=== PATIENT | male | born 1945 | race Caucasian/White ===

== ENCOUNTER 2018-05-09 12:04 | Inpatient (IN) ==
--- NOTE | 2018-05-09 13:27 | EKG Report ---
Test Performed on : 05/09/2018 1:16:48 PM Test Reason : chest pain Blood Pressure : / mmHG Vent. Rate : 081 BPM Atrial Rate : 076 BPM P-R Int : 000 ms QRS Dur : 078 ms QT Int : 388 ms P-R-T Axes : 000 037 018 degrees QTc Int : 450 ms Atrial fibrillation. Low voltage QRS Abnormal ECG When compared with ECG of 09-MAY-2018 13:16, (Unconfirmed) No significant change was found Confirmed by Mely TENA, Colin Wise ([id number]) on 05/09/2018 5:29:00 PM
[2018-05-09 13:31] LABS: BASO# 0.02 X1000 (0.0-0.2); BASO% 0.2 % (0.0-0.8); EOS# 0.18 X1000 (0.0-0.7); EOS% 2.1 % (0.0-10.0); HEMATOCRIT 41.5 % (42.0-52.0); HEMOGLOBIN 12.1 g/dL (14.0-18.0); IMM GRAN# 0.02 X1000 (0.0-0.04); IMM GRAN% 0.2 % (0.0-0.5); LYMPH# 0.79 X1000 (1.2-3.4); LYMPH% 9.2 % (20.5-51.1); MCH 25.6 PG (27-31); MCHC 29.2 g/dL (33-37); MCV 87.7 FL (81-99); MONO% 8.1 % (1.7-9.3); MPV 10.3 FL (7.4-10.4); NEUT# 6.88 X1000 (1.4-6.5); NEUT% 80.2 % (42.2-75.2); PLT 185 X1000 (130-400); RBC 4.73 XMIL (4.7-6.1); RDW 19.5 % (11.5-14.5); WBC 8.59 X1000 (4.8-10.8)
--- NOTE | 2018-05-09 13:36 | Diag Imaging Result Doc PS360 ---
EXAM: CHEST-2 VIEWS 05/09/2018 HISTORY: SOB TECHNIQUE: PA and lateral chest COMMENT: There is cardiomegaly. There is interstitial pulmonary edema generally. This was not the case at the time the previous study of 07/12/2014. IMPRESSION: Pulmonary edema. Electronically signed by Reggie Slater 05/09/2018 1:34 PM
[2018-05-09 13:56] LABS: HEMOGLOBIN A1C 5.4 % (4.8-6.0)
[2018-05-09 14:01] LABS: ALB/GLOB RATIO 1.7; ALBUMIN 3.9 g/dL (3.5-5.0); CALCIUM 8.4 mg/dL (8.8-10.2); CREATININE 1.5 mg/dL (0.7-1.2); MAGNESIUM 2.2 mg/dL (1.5-2.7); POTASSIUM 4.3 mmol/L (3.5-5.1); TOTAL BILIRUBIN 0.9 mg/dL (0.20-1.00); TOTAL PROTEIN 6.2 g/dL (6.3-8.3)
[2018-05-09] MEDS: LASIX IV SCH (14:31)
[2018-05-09 20:11] LABS: INR 3.09
[2018-05-09] MEDS: COREG PO SCH (20:22)
[2018-05-09] MEDS ORDERED: COUMADIN PO SCH (23:30)
[2018-05-10] MEDS: LASIX IV SCH ×3 (00:09→17:30)
--- NOTE | 2018-05-10 03:54 | HISTORY AND PHYSICAL ---
CHIEF COMPLAINT: Altered mental status, shortness of breath, hypoxemia, weight gain, swelling of feet with blisters coming, and oozing of the fluid on both legs. HISTORY OF PRESENT ILLNESS: He is a 72-year-old, white gentleman who came into my office with the above problems for the last 1 week. Patient was hypoxic. Chest x-ray, cardiomegaly with increased pulmonary vasculature. There was 4+ pedal edema. He also has fluid in the belly. Basically admitted to the hospital with decompensated diastolic heart failure with underlying chronic atrial fibrillation. 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 PAST SURGICAL HISTORY: Right cataract surgery, right nephrectomy due to oncocytoma. ALLERGIES: Not known. MEDICATIONS: Finasteride 5 mg daily, Coreg 25 p.o. b.i.d., alfuzosin 10 mg daily, allopurinol 200 daily, amlodipine 10 daily, cetirizine 10 daily, folic acid 400 mcg daily, Lasix 40 daily, B12 500 mcg daily, warfarin 5 and 10 mg alternating. ALLERGIES: Avoid blood products due to IgA deficiency. SOCIAL HISTORY: . Two kids. Lives in [place]. Retired from [employer]. No smoking. Noalcohol. FAMILY HISTORY: Father of heart failure at 72. Mom of heart failure at 75. HEALTH MAINTENANCE: Flu vaccine January 2017, tetanus November 2016, last prostate exam December 2017 , colonoscopy refused. REVIEW OF SYSTEMS: HEENT: No headache. No vision problem. Had a large, 1 cm basal cell on the right side, slowly healing status post radiation before. He had several cryoablation procedures done. Neck: There is no neck pain. Cardiopulmonary: Shortness of breath, PND , orthopnea. No chest pain. GI: Abdominal swelling. Genitourinary: He had a left kidney, had another oncocytoma, under the care of Dr. Serrano No history of hesitancy, frequency, dysuria, obstructive symptoms. Musculoskeletal: Swelling of feet and both legs, and blisters noted. Constitutional: Weight gain. Neurologic: No neurological symptoms or weakness. PHYSICAL EXAMINATION: VITAL SIGNS: Temperature is 97 degrees, pulse is 84, 2 L nasal cannula 89%, blood pressure is 117/66. HEENT EXAMINATION: Atraumatic, normocephalic. Pupils equal, react to light. TMs are normal. Nose and throat within midline. A 1 cm basal cell on the right side noted. NECK: Supple. No lymphadenopathy. CHEST: There is bilateral air entry. HEART: Heart sounds are irregular. ABDOMEN: Belly is soft, obese, nontender. Good bowel sounds. RECTAL: Examination deferred. EXTREMITIES: There is 3+ pedal edema in both legs. Blisters on the left leg noted. NEUROLOGIC: No obvious neurological deficits. INVESTIGATIONS: CBC: White cell count 8.5, hematocrit 42, platelets 185,000. PTT 34, INR 3.09. SMA 7: Sodium 147, BUN 31, creatinine 1.5. Troponin was normal. ProBNP is elevated. B12 is normal. Chest x-ray, cardiomegaly with CHF. ASSESSMENT AND PLAN: 1. A 72-year-old, white gentleman admitted to the hospital with acute decompensated diastolic heart failure. We will follow up on echocardiography. Continue on fluid restriction, daily weights, intravenous Lasix. 2. 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 3. Lesion on the left kidney, suspicious solid mass, under the care of urologist. 4. IgA deficiency. Avoid blood products unless washed red blood cell transfusion. 5. Benign prostatic hypertrophy. Continue on Uroxatral and finasteride. 6. Postvoid residual urine 150 mL. 7. Chronic atrial fibrillation, on Coumadin 5 mg daily. Continue to monitor. 8. Chronic atrial fibrillation, on Coreg. 9. Hypertension, on amlodipine. Unable to tolerate MICHELLE inhibitors. 10. Hypoxemia due to congestive heart failure and we will follow up. 11. Basal cell carcinoma on the right sideburn, status post radiation with recurrence, cryoablation since January. 12. Type 2 diabetes, diet controlled. 13. Gout on the right wrist, on allopurinol 200 daily. 14. Large ventral hernia on the right flank, asymptomatic. 15. Left-sided testicular hydrocele, stable. 16. Discussed with the family the plan of care. We will follow up. cc: Seth Hines MD [facility]
[2018-05-10 05:52] LABS: ALLEN TEST YES; BE 3.4 mmoll (-3.0-3.0); BLOOD TYPE ARTERIAL; HCO3-(ACT) 27.2 mmoll (20.0-26.0); METHB 0.5 % (0.0-1.5); O2(CT) 14.6 mL/dL (15.0-23.0); SAMPLE BLOOD; SAO2 84.4 % (95.0-100.0); THB 12.7 g/dL (11.5-17.4); pH(98.6) 7.22 (7.35-7.45)
[2018-05-10 05:53] LABS: PCO2(98.6) 82 mmHg (35-45); PO2(98.6) 48 mmHg (60-100)
[2018-05-10 05:54] LABS: MODALITY VENTIMASK; O2HB 81.8 % (95.0-99.0)
[2018-05-10 07:06] LABS: CREATININE 1.7 mg/dL (0.7-1.2); POTASSIUM 4.1 mmol/L (3.5-5.1)
[2018-05-10 07:27] LABS: INR 3.56; PROTIME 38.1 Seconds (11.0-16.0)
--- NOTE | 2018-05-10 08:05 | ECHO REPORT ---
ORDER DATE: 05/09/2018 MEASUREMENTS: 1. Left ventricular end-diastolic diameter 4.4. 2. End systolic murmur 2.7. 3. Septal thickness 1.0. 4. Posterior wall thickness 1.0. 5. Aortic root 2.8. 6. Left atrium 4.2. SUMMARY: 1. Technically difficult study due to limited acoustic window quality. 2. Gspo-iv-rxckphsg sclerosis of trileaflet aortic valve demonstrated with mild reduction in aortic valve leaflet mobility, but visibly adequate aortic valve opening. Peak gradient across aortic valve is 15 mmHg. Mild mitral annular calcification is demonstrated. Tricuspid valve is without evidence of structural abnormality with mild tricuspid regurgitation. Estimated systolic PA pressure by Doppler is 65 mmHg suggesting moderate pulmonary hypertension. Pulmonic valve is not well demonstrated. The aortic root is normal size. 3. Normal left ventricular dimensions suggested. Estimated left ventricular ejection fraction appears to be at least 65%. No regional wall motion abnormalities evident. Bnnv-ou-vtkccgze biatrial enlargement demonstrated. Right ventricle is normal in size with grossly preserved right ventricular systolic function. 4. No pericardial effusion. 5. Appearance of inferior vena cava suggests normal central venous pressure. 6. Rhythm during study appears to be atrial fibrillation. CONCLUSIONS: 1. Technically difficult study. 2. Aortic valve sclerosis with minimal aortic stenosis. 3. Mild mitral annular calcification. 4. Mild tricuspid regurgitation with estimated systolic pulmonary artery pressure 65 mmHg. 5. Estimated left ventricular ejection fraction at least 65%. 6. Goyy-ve-zhzrfcnc biatrial enlargement. 7. Atrial fibrillation during study. cc: MD Seth Weeks MD
[2018-05-10] MEDS: COREG PO SCH ×2 (08:46→21:34)
[2018-05-10] MEDS: FOLIC ACID PO SCH (08:47)
[2018-05-10] MEDS: VITAMIN B-12 PO SCH (08:47)
[2018-05-10] MEDS: PROSCAR PO SCH (08:47)
[2018-05-10] MEDS: ZYLOPRIM PO SCH (08:47)
[2018-05-10] MEDS: ZYRTEC PO SCH (08:48)
[2018-05-10 08:55] LABS: ALLEN TEST YES; BE 4.7 mmoll (-3.0-3.0); BLOOD TYPE ARTERIAL; HCO3-(ACT) 28.4 mmoll (20.0-26.0); METHB 1.1 % (0.0-1.5); O2(CT) 15.2 mL/dL (15.0-23.0); PO2(98.6) 59 mmHg (60-100); SAMPLE BLOOD; SAO2 92.2 % (95.0-100.0); THB 12.1 g/dL (11.5-17.4); pH(98.6) 7.21 (7.35-7.45)
[2018-05-10 08:58] LABS: O2HB 89.1 % (95.0-99.0); PCO2(98.6) 88 mmHg (35-45)
[2018-05-10 08:59] LABS: MODALITY BI PAP; SRATE 14 BPM
[2018-05-10] MEDS ORDERED: UROXATRAL PO SCH (09:00)
[2018-05-10] MEDS ORDERED: NORVASC PO SCH (09:00)
[2018-05-10] MEDS ORDERED: LASIX IV SCH (09:30)
--- NOTE | 2018-05-10 10:36 | Diag Imaging Result Doc PS360 ---
EXAM: CHEST-PORTABLE 05/10/2018 HISTORY: abnormal abgs TECHNIQUE: AP portable at 1006 COMMENT: There is cardiomegaly. There is pulmonary edema which has worsened particularly in the left upper lobe compared to 05/09/2018. IMPRESSION: Worsened pulmonary edema plus minus pneumonia. Electronically signed by Reggie Slater 05/10/2018 10:33 AM
[2018-05-10] MEDS ORDERED: ATIVAN IV ONE (11:33)
--- NOTE | 2018-05-10 15:24 | Diag Imaging Result Doc PS360 ---
EXAM: US ABDOMEN-COMPLETE INDICATION: nausea COMPARISON: 07/13/2014 FINDINGS: There are several shadowing stones in the lumen of gallbladder. There is no evidence of gallbladder wall thickening or pericholecystic fluid. The common bile duct is normal in diameter. Sonographic Aparicio's sign was reported to be negative. The liver is grossly unremarkable. Portal venous flow is hepatopetal. The pancreas is obscured. The IVC is unremarkable. The proximal aorta appears normal. The mid aorta is obscured. There appear to be diminished flow in the distal aorta suggesting possible stenosis. The spleen is somewhat prominent measuring up to 15.8 cm in length. There has been a prior right nephrectomy. There is a 3.4 cm simple left renal cyst. IMPRESSION: 1.Cholelithiasis. 2.Diminished flow in the distal aorta which may indicate some degree of stenosis. 3.Somewhat prominent spleen. Electronically signed by Malcom Otero 05/10/2018 3:21 PM
[2018-05-10] MEDS: NITROGLYCERIN TOP SCH ×2 (17:30→22:57)
[2018-05-11 05:05] LABS: ALLEN TEST YES; BE 4.9 mmoll (-3.0-3.0); BLOOD TYPE ARTERIAL; HCO3-(ACT) 28.7 mmoll (20.0-26.0); METHB 0.8 % (0.0-1.5); O2(CT) 15.2 mL/dL (15.0-23.0); O2HB 96.2 % (95.0-99.0); PO2(98.6) 105 mmHg (60-100); SAMPLE BLOOD; SAO2 98.4 % (95.0-100.0); THB 11.1 g/dL (11.5-17.4); pH(98.6) 7.28 (7.35-7.45)
[2018-05-11 05:08] LABS: MODALITY BI PAP; PCO2(98.6) 71 mmHg (35-45)
[2018-05-11] MEDS: LASIX IV SCH ×2 (05:35→17:22)
[2018-05-11] MEDS: NITROGLYCERIN TOP SCH ×4 (05:35→23:18)
[2018-05-11 06:21] LABS: ALB/GLOB RATIO 1.4; ALBUMIN 3.2 g/dL (3.5-5.0); CALCIUM 8.1 mg/dL (8.8-10.2); CREATININE 2.1 mg/dL (0.7-1.2); MAGNESIUM 2.5 mg/dL (1.5-2.7); PHOSPHORUS 4.9 mg/dL (2.7-4.5); POTASSIUM 3.8 mmol/L (3.5-5.1); TOTAL BILIRUBIN 0.64 mg/dL (0.20-1.00); TOTAL PROTEIN 5.5 g/dL (6.3-8.3)
[2018-05-11 06:29] LABS: BASO# 0.01 X1000 (0.0-0.2); BASO% 0.1 % (0.0-0.8); EOS# 0.05 X1000 (0.0-0.7); EOS% 0.5 % (0.0-10.0); HEMATOCRIT 39.3 % (42.0-52.0); HEMOGLOBIN 10.9 g/dL (14.0-18.0); IMM GRAN# 0.03 X1000 (0.0-0.04); IMM GRAN% 0.3 % (0.0-0.5); LYMPH# 0.73 X1000 (1.2-3.4); LYMPH% 7.9 % (20.5-51.1); MCH 25.6 PG (27-31); MCHC 27.7 g/dL (33-37); MCV 92.3 FL (81-99); MONO# 0.88 X1000 (0.11-0.59); MONO% 9.5 % (1.7-9.3); MPV 11.5 FL (7.4-10.4); NEUT# 7.56 X1000 (1.4-6.5); NEUT% 81.7 % (42.2-75.2); PLT 164 X1000 (130-400); RBC 4.26 XMIL (4.7-6.1); RDW 19.2 % (11.5-14.5); WBC 9.26 X1000 (4.8-10.8)
--- NOTE | 2018-05-11 06:59 | PROGRESS NOTE ---
DATE: 05/10/2018 SUBJECTIVE: Interval history was reviewed since I saw him last night at 09:00. He was on oxygen doing very well. Apparently, this morning he was confused and agitated requiring hypoxemia and increased FiO2. He was placed on BiPAP and mental confusion due to CO2 narcosis. He was given 80 mg of IV Lasix with minimal urine output. Bladder scan was less than 100 mL to date. He has history of BPH. The whole family was at bedside. He was obtunded on BiPAP machine on analytics analyst. Urine output less than 500 mL. Chest x-ray worsening. The patient is awake. I had a long discussion with the family. He does have a living will DNR. In case he fails to diuresis, he is willing to go for dialysis. REVIEW OF SYSTEMS: Confusion, not able to obtain. OBJECTIVE: On exam, he is afebrile. Heart rate is normal. Vitals are stable.General: Heavy set. HEENT: On BiPAP machine. Lungs: Poor air entry. Heart: Distant heart sounds. Abdomen: Belly is soft, obese. Extremities: 3+ pedal edema with blisters noted. Pelvic: Vines was placed. INVESTIGATIONS: PTT 34. INR 3.56. ABG: pH is 7.22, pCO2 82, PO2 48 on 50% Ventimask. Now, he is on BiPAP 100%. Repeat blood gas pH is 7.21, pCO2 88 and PO2 59. SMA 7. Sodium 146, potassium 4.1, and chloride 102. BUN 35 and creatinine 1.7. Glucose 110. A1c 5.4. Calcium 8. ProBNP 2800, B12 1868. Chest x-ray worsening of pulmonary edema. EKG with atrial fibrillation. ASSESSMENT AND PLAN: 1. A 72-year-old white male admitted to the hospital with altered mental status, obtundation due to CO2 narcosis, hypoxemia with diastolic heart failure with atrial fibrillation with a generalized edema failed to improve with IV Lasix due to chronic kidney disease with status post right nephrectomy. Plan is BiPAP. 2. Consult with Dr. Meza. Transferred to the ICU. 3. Living will. DNR. 4. INR is 3.5. We will hold the Coumadin. 5. Vines catheter was placed to maintain the urine output. 6. Agitation. We will give Ativan as needed. 7. IgA deficiency. Avoid blood products. 8. Discussed with the family. If he fails to diuresis, consider dialysis machine. Patient is willing to consult with Dr. Baldwin. Discussed with Dr. Meza and Dr. Baldwin. We will hold the blood pressure medicine if systolic blood pressure less than 100. We will repeat the blood gases and labs in the morning. LEVEL OF DOCUMENTATION: 35 minutes. cc: Seth Hines MD
--- NOTE | 2018-05-11 07:05 | Diag Imaging Result Doc PS360 ---
EXAM: CHEST-PORTABLE 05/11/2018 HISTORY: respiratory failure TECHNIQUE: AP portable at 0459 COMMENT: There is worsened alveolar opacity throughout both lungs compared to 05/10/2018. The heart size remains enlarged. IMPRESSION: Cardiomegaly and florid pulmonary edema/ARDS. Electronically signed by Reggie Slater 05/11/2018 7:03 AM
--- NOTE | 2018-05-11 07:35 | PULMONOLOGY CONSULTATION ---
DATE: 05/10/2018 REQUESTING PHYSICIAN: Tiffanie Hines MD REASON FOR CONSULTATION: Respiratory failure. HISTORY OF PRESENT ILLNESS: Mr. Hall is a 72-year-old white male with a history of diastolic heart failure, diabetes mellitus, hypertension, and chronic kidney disease with prior nephrectomy, who presented to Dr. Hines's office with changes in mental status, hypoxemia, and increasing lower extremity edema. Chest x-ray revealed cardiomegaly with CHF. The patient was admitted to the hospital with heart failure with normal ejection fraction. Pulmonary consultation was requested. PAST MEDICAL HISTORY/PROBLEM LIST: 1. Diastolic heart failure. 2. Morbid obesity. 3. Status post right nephrectomy for a malignancy. 4. Hypertension. 5. Chronic renal failure. 6. Diabetes mellitus. 7. Chronic atrial fibrillation. 8. BPH. 9. History of basal cell carcinoma. 10. Status post right cataract surgery. SOCIAL HISTORY: No tobacco or alcohol use listed. FAMILY HISTORY: Positive for heart failure in both his mother and his father. REVIEW OF SYSTEMS: Limited. The patient is poorly responsive. He is on a BiPAP mechanical ventilation. PHYSICAL EXAMINATION: General: Reveals an obese white male who appears comfortable on BiPAP ventilation. Blood pressure 106/60, heart rate 89, respiratory rate 18, oxygen saturation 97%. HEENT: Pupils are equal. Oropharynx evaluation is limited with BiPAP in place. Neck: Supple. Chest: Reveals distant breath sounds bilaterally. Cardiac: S1 and S2. Abdomen: Obese and soft. Extremities: Reveal 3+ edema. LABORATORIES: Chest x-ray reveals cardiomegaly with vascular congestion and pulmonary edema. Arterial blood gas reveals a pH of 7.21, pCO2 of 88, PO2 of 59. Chemistry: Sodium 146, potassium 4.1, chloride 102, bicarbonate 33, BUN 35, creatinine 1.7. His proBNP is elevated at 2834. White blood count 8.59, hemoglobin 12.1, platelet count 185,000. IMPRESSION: A 72-year-old with diastolic heart failure, morbid obesity, acute hypoxemic respiratory failure, acute hypercapnic respiratory failure, chronic renal insufficiency. His overall prognosis is guarded. His end-of-life wishes have been addressed by Dr. Hines, and he is a do not resuscitate level 1. PLAN: 1. Continue BiPAP support. I have made some adjustments by increasing the pressures. 2. Attempt diuresis. He is currently receiving Lasix 200 mg twice a day, ordered by Dr. Baldwin. 3. We will initiate gastric acid suppression. 4. The patient is already anticoagulated. We will not give additional treatment at this time. 5. Overall prognosis is guarded. End-of-life discussions have been made, and he is a do not resuscitate level 1/allow natural . cc: MD Seth Kenny MD
[2018-05-11 08:26] LABS: INR 6.52; PROTIME 61.3 Seconds (11.0-16.0)
--- NOTE | 2018-05-11 11:19 | NEPHROLOGY PROGRESS NOTE ---
DATE: 05/11/2018 SUBJECTIVE: Mr. Hall is lying in bed. He is awake, alert, appropriate. Answers my questions. He does not remember seeing me yesterday, however. Shortness of breath has improved. OBJECTIVE: Vital Signs: Blood pressure 121/84, heart rate 97, respiration 19, afebrile. Intake 400 mL. Output 1.4 L total. General: No acute distress. Skin: Pale and dry, with ecchymoses as above. Skin is warm and dry. Otherwise, conjunctivae are pink. Oropharynx is not examined. Neck: Neck veins are distended. Heart: Regular. No audible gallops. Lungs: Equal breath sounds. No crackles are appreciated anteriorly. Abdomen: Soft, nontender. Bowel sounds are present. Extremities: 3+ edema. No clubbing or cyanosis. IMPRESSION: Acute kidney injury overlying chronic kidney disease. Baseline creatinine 1.6, and his creatinine this morning is 2.1. Low urine output. However, his urine output is improving, and I am hopeful that with continued diuretic administration and BiPAP, that he will have improvement in his cardiorenal syndrome. Otherwise, the only other therapeutic modality would be dialysis. Because of his hypotension, this will be problematic to employ. cc: MD Seth Borges MD
--- NOTE | 2018-05-11 11:29 | NEPHROLOGY CONSULTATION ---
DATE: 05/10/2018 REASON FOR CONSULTATION: Volume overload and possible need for dialysis. HISTORY OF PRESENT ILLNESS: Mr. Hall is a 72-year-old, white male that I have seen in the past. He has a solitary kidney following complicated resection of transitional cell carcinoma by Dr. Sorensen. He had stable kidney function thereafter and has not followed with us on a regular basis for that reason. He has diastolic heart failure, obesity, atrial fibrillation, diabetes, etc. Baseline creatinine approximately 1.5. He was admitted to the hospital because of worsening weight gain, lower extremity swelling with desquamation and weeping. I saw the patient in the hospital room on the 3rd floor when he was being transitioned from the commode to the bed. Markedly confused, obtunded. Not able to answer any questions. His is at the bedside and extremely anxious about his declining status. He has been progressively worse over days to weeks. No chills or fevers. Minimal cough. No sputum. PAST MEDICAL HISTORY: As above. HOME MEDICATIONS: Include finasteride, carvedilol, allopurinol, amlodipine, cetirizine, folate, furosemide, warfarin. ALLERGIES: None. SOCIAL HISTORY: , lives with his . Former smoker. FAMILY HISTORY: Otherwise noncontributory. REVIEW OF SYSTEMS: Otherwise noncontributory. PHYSICAL EXAMINATION: Vital Signs: Blood pressure 88/40, heart rate 88, respirations 20, afebrile. General: He is an obtunded, elderly man. Unresponsive but no respiratory distress. Skin: Pale and dry with multiple ecchymoses and bruises on the arms. HEENT: Pupils are equal. Conjunctivae are pink. Oropharynx is dry. Neck: Neck veins are distended. Trachea is midline. Heart: PMI is not palpable. Heart is regular without gallops or murmurs. Lungs: Equal, decreased breath sounds with scattered crackles. Abdomen: Obese, soft, nontender. Bowel sounds diminished but present. No palpable organomegaly. Extremities: Have 3+ edema. No clubbing or cyanosis. IMPRESSION: 1. Volume overload. 2. Congestive heart failure. This includes pulmonary edema as well as signs of right-sided heart failure. PLAN: Echocardiogram demonstrates normal LV function. As such, I expect that his primary problem will be related to pulmonary hypertension. In fact, his pulmonary artery pressure by echocardiogram was 65 mmHg. We will treat with high dose IV furosemide and BiPAP, and observe his response. Move to the ICU. I have discussed with the the possible need for hemodialysis if his volume status does not respond to current therapy. His initial exam was performed at 0800. I visited again at 1930, at which time he was more comfortable on the mask but still nonverbal. His did all the talking. Blood pressure had stabilized and oxygenation was acceptable on BiPAP. cc: MD Seth Borges MD
[2018-05-11] MEDS: COREG PO SCH ×2 (12:50→20:32)
[2018-05-11] MEDS: FOLIC ACID PO SCH (12:56)
[2018-05-11] MEDS: ZYLOPRIM PO SCH (12:59)
[2018-05-11] MEDS: PROSCAR PO SCH (16:30)
[2018-05-11] MEDS: ZYRTEC PO SCH (16:31)
[2018-05-11] MEDS: VITAMIN B-12 PO SCH (16:31)
[2018-05-11] MEDS ORDERED: VITAMIN K SUBQ ONE (19:00)
--- NOTE | 2018-05-12 04:44 | PROGRESS NOTE ---
DATE: 05/11/2018 SUBJECTIVE: The patient is a little bit docile, less combative on restraints on BiPAP machine. Urine output is slowly picking up, getting IV Lasix 200 q.12. Hemodynamics were stable. Chest x- ray is worsening. No complaints. REVIEW OF SYSTEMS: Not able to obtain. OBJECTIVE: Vital signs: Pulse is 88, blood pressure is 134/65. BiPAP 93%. I' and O's negative about so far 500 mL. Chest: Poor air entry. Distant heart sounds. Belly: Soft and nontender. Extremities: 1+ pedal edema. Genitourinary: Vines was placed. Neurologic: No neurological deficits. INVESTIGATIONS: CBC: White cell count 9.2, hematocrit 39, platelets 164,000. PT 61, INR 6.5. ABG: pH is 7.28, pCO2 71, pO2 105 on BiPAP 100%. SMA-7: BUN 46, creatinine 2.1. Albumin 3.2, total protein 5.5. ASSESSMENT AND PLAN: 1. Acute shortness of breath due to respiratory failure with carbon dioxide narcosis with underlying chronic obstructive pulmonary disease and congestive heart failure due to diastolic dysfunction. Plan is slowly wean off BiPAP. 2. Intravenous Lasix. 3. Slightly worsening of renal function tests. 4. Chronic atrial fibrillation on Coumadin and Coreg. 5. INR is 6.2. Will closely monitor for signs of bleeding. If there is any signs of bleeding, we will give 1 mg of vitamin K. Will check the PT/INR in the morning. Discussed with the family. LEVEL OF DOCUMENTATION: 25 minutes. cc: Seth Hines MD
[2018-05-12 04:45] LABS: BE 7.2 mmoll (-3.0-3.0); BLOOD TYPE ARTERIAL; HCO3-(ACT) 30.2 mmoll (20.0-26.0); O2(CT) 15.5 mL/dL (15.0-23.0); SAMPLE BLOOD; SAO2 87.4 % (95.0-100.0); pH(98.6) 7.39 (7.35-7.45)
[2018-05-12 04:47] LABS: ALLEN TEST YES; PCO2(98.6) 56 mmHg (35-45)
[2018-05-12 04:48] LABS: MODALITY BI PAP; PO2(98.6) 49 mmHg (60-100)
[2018-05-12] MEDS: NITROGLYCERIN TOP SCH ×4 (04:57→23:42)
[2018-05-12] MEDS: LASIX IV SCH ×2 (04:57→17:43)
[2018-05-12 05:41] LABS: BASO# 0.01 X1000 (0.0-0.2); BASO% 0.1 % (0.0-0.8); EOS# 0.09 X1000 (0.0-0.7); HEMATOCRIT 36.8 % (42.0-52.0); HEMOGLOBIN 10.4 g/dL (14.0-18.0); IMM GRAN# 0.03 X1000 (0.0-0.04); IMM GRAN% 0.3 % (0.0-0.5); LYMPH# 0.75 X1000 (1.2-3.4); MCH 25.6 PG (27-31); MCHC 28.3 g/dL (33-37); MCV 90.4 FL (81-99); MONO# 1.11 X1000 (0.11-0.59); MONO% 11.8 % (1.7-9.3); MPV 10.9 FL (7.4-10.4); NEUT# 7.38 X1000 (1.4-6.5); NEUT% 78.8 % (42.2-75.2); PLT 172 X1000 (130-400); RBC 4.07 XMIL (4.7-6.1); RDW 19.1 % (11.5-14.5); WBC 9.37 X1000 (4.8-10.8)
[2018-05-12 06:01] LABS: PROTIME 67.3 Seconds (11.0-16.0)
[2018-05-12 06:06] LABS: INR 7.34
--- NOTE | 2018-05-12 06:26 | PULMONOLOGY PROGRESS NOTE ---
DATE: 05/11/2018 SUBJECTIVE: The patient is awake and alert. He is on BiPAP. He is asking for water. OBJECTIVE: Vital Signs: Blood pressure 134/65. Heart rate 95, respiratory rate 21, oxygen saturation 93% on BiPAP. HEENT: Pupils are equal and reactive. Oropharynx is clear. Neck: Supple. Chest: Reveals diminished breath sounds bilaterally with prolonged expiratory phase. Cardiac: Distant heart sounds. Normal S1, S2. Abdomen: Obese and soft. Extremities: Reveal 2+ peripheral edema with some evidence of fluid removal from the legs. LABORATORIES: Arterial blood gas on BiPAP reveals a pH of 7.28, pCO2 of 71, PO2 of 105, white blood count 9.26, hemoglobin 10.9, platelet count 164,000. Chemistry sodium 149, potassium 3.8, chloride 103, bicarbonate 26, BUN 46, creatinine 2.1. Chest x-ray reveals increased pulmonary edema bilaterally with cardiomegaly. IMPRESSION: A 72-year-old with diastolic heart failure, pulmonary hypertension, pulmonary edema, acute hypoxemic respiratory failure, acute hypercapnic respiratory failure, and chronic renal insufficiency. He has had very limited output with large doses of diuretics. Clinically, he appears marginally improved although radiographically he appears worse. RECOMMENDATIONS: 1. Continue BiPAP and cycle with O2 for his respiratory failure. 2. Continue large doses of diuretics per Dr. Baldwin. 3. Continue to follow INR. His INR is higher today and he may require fresh frozen plasma. He will get a small dose of vitamin K. 4. Prognosis is guarded to poor. His code status has been addressed by Dr. Hines. cc: MD Seth Kenny MD
[2018-05-12] MEDS ORDERED: VITAMIN K SUBQ ONE (07:25)
--- NOTE | 2018-05-12 07:44 | Diag Imaging Result Doc PS360 ---
CHEST-PORTABLE - 05/12/2018 INDICATION: respiratory failure COMPARISON: 05/11/2018 FINDINGS: Stable cardiomegaly and pulmonary vascular congestion. There is improvement in the interstitial pulmonary edema. There are trace bilateral pleural effusions. IMPRESSION: Improvement in the pulmonary edema. Electronically signed by Charlie Saxena 05/12/2018 7:41 AM
[2018-05-12 07:46] LABS: AGAP 18; ALB/GLOB RATIO 1.2; ALKALINE PHOSPHATASE 65 U/L (32-122); BUN 56 mg/dL (8-22); CALCIUM 8.5 mg/dL (8.8-10.2); CHLORIDE 102 mmol/L (98-107); COSMO 309; ESTIMATED GFR 33; GLUCOSE 93 mg/dL (70-104); GOT 7 U/L (10-34); GPT < 5 U/L (10-44); POTASSIUM 3.5 mmol/L (3.5-5.1); SODIUM 148 mmol/L (136-145); TCO2 28 mmol/L (25-35); TOTAL BILIRUBIN 0.68 mg/dL (0.20-1.00); TOTAL PROTEIN 5.6 g/dL (6.3-8.3)
[2018-05-12] MEDS: VITAMIN B-12 PO SCH (08:34)
[2018-05-12] MEDS: PROSCAR PO SCH (08:34)
[2018-05-12] MEDS: FOLIC ACID PO SCH (08:34)
[2018-05-12] MEDS: COREG PO SCH ×2 (08:34→20:47)
[2018-05-12] MEDS: ZYRTEC PO SCH (08:34)
[2018-05-12] MEDS: ZYLOPRIM PO SCH (08:34)
[2018-05-12] MEDS ORDERED: SODIUM CHLORIDE 0.9% INJ SCH (14:45)
[2018-05-12] MEDS ORDERED: TYLENOL PO PRN (14:58)
[2018-05-12 15:15] LABS: HEMATOCRIT 32.4 % (42.0-52.0); HEMOGLOBIN 9.1 g/dL (14.0-18.0)
[2018-05-12 15:39] LABS: INR 4.49; PROTIME 45.7 Seconds (11.0-16.0)
[2018-05-12] MEDS: PROTONIX IV SCH (17:43)
[2018-05-12] MEDS: LEVAQUIN 250 MG/D5W 250 MG/50 ML IVPB IV SCH (19:01)
--- NOTE | 2018-05-13 00:11 | PROGRESS NOTE ---
DATE: 05/12/2018 SUBJECTIVE: The patient is a little better, more docile. Diuresis is picking up. He is still off BiPAP on 80% non-rebreather. INR is very high. Vitamin K was given. Started having black melenic stool. He also started running some fever, 100.2, tachycardic. PHYSICAL EXAMINATION: Vital signs: Stable. HEENT: On non-rebreather. Heart: Distant heart sounds. Abdomen: Belly is soft, nontender. Extremities: Edema is decreasing. Left leg is slightly red. INVESTIGATIONS: CBC: White cell count 9.3, hematocrit 32, platelet 172,000. INR 4.49. ABG: pH is 7.39, pCO2 of 56 pO2 of 49 on BiPAP 50%. SMA-7: BUN 56, creatinine 2.0. ASSESSMENT AND PLAN: 1. Acute respiratory failure and carbon dioxide narcosis with diastolic heart failure. He is on IV Lasix 2 mg IV q.12. 2. Gout, on Zyloprim. 3. Acute on chronic kidney disease due to diuresis. 4. Chest x-ray slowly improving. Wean off FiO2. 5. Prolonged PT. He is on Coumadin for atrial fibrillation. 6. Heme-positive stools. Hematocrit is stable. He is allergic to blood products due to IgA deficiency. Plan is vitamin K and repeat PT/INR. 7. IV Protonix. 8. Fever, possible cellulitis. We will start antibiotics with Levaquin, Tylenol for fever and pain, and will repeat the labs in the morning. 9. Discussed with the family. LEVEL OF DOCUMENTATION: 25 minutes. cc: Seth Hines MD
--- NOTE | 2018-05-13 04:46 | NEPHROLOGY PROGRESS NOTE ---
DATE: 05/12/2018 SUBJECTIVE: He feels like he is better today. He is looking at me, interactive , answers my questions appropriately. He does not remember seeing me yesterday. This exam was performed at approximately 8 to 8:15 in the morning. OBJECTIVE: Blood pressure 118/68, heart rate 107, respirations 30 temperature 100.2 degrees. General: No acute distress. Skin: Warm and dry. Conjunctivae are pink. Lungs: Wheezes scattered. Heart: Regular, with a gallop. Abdomen: Soft, nontender. Bowel sounds present. Extremities: 2+ edema. No clubbing or cyanosis. IMPRESSION: Acute kidney injury overlying chronic kidney disease. Creatinine is stable over the last 24 hours, and his urine output has improved significantly. We will continue the same treatment. He does have modest hypernatremia, but it is not worsening. Other electrolytes and acid-base are in target. No changes. cc: MD Seth Borges MD MTDD
[2018-05-13] MEDS: LASIX IV SCH ×2 (05:05→17:12)
[2018-05-13] MEDS: PROTONIX IV SCH ×2 (05:05→17:12)
[2018-05-13] MEDS: NITROGLYCERIN TOP SCH ×4 (05:39→23:57)
[2018-05-13 06:23] LABS: BASO# 0.02 X1000 (0.0-0.2); BASO% 0.2 % (0.0-0.8); EOS# 0.18 X1000 (0.0-0.7); EOS% 1.7 % (0.0-10.0); HEMATOCRIT 29.1 % (42.0-52.0); HEMOGLOBIN 8.3 g/dL (14.0-18.0); IMM GRAN# 0.04 X1000 (0.0-0.04); IMM GRAN% 0.4 % (0.0-0.5); LYMPH# 1.24 X1000 (1.2-3.4); LYMPH% 11.4 % (20.5-51.1); MCH 25.4 PG (27-31); MCHC 28.5 g/dL (33-37); MONO# 1.04 X1000 (0.11-0.59); MONO% 9.6 % (1.7-9.3); NEUT# 8.36 X1000 (1.4-6.5); NEUT% 76.7 % (42.2-75.2); PLT 187 X1000 (130-400); RBC 3.27 XMIL (4.7-6.1); RDW 19.1 % (11.5-14.5); WBC 10.88 X1000 (4.8-10.8)
[2018-05-13 06:42] LABS: INR 2.28; PROTIME 26.8 Seconds (11.0-16.0)
[2018-05-13 06:54] LABS: EOS 2 % (1-10); LYMPHS 6 % (21-51); MONO 12 % (1-9); SEGS 80 % (42-75)
[2018-05-13 06:56] LABS: ANISOCYTOSIS 1+; HYPOCHROM 1+
[2018-05-13 07:06] LABS: AGAP 13; ALB/GLOB RATIO 1.7; ALBUMIN 2.9 g/dL (3.5-5.0); ALKALINE PHOSPHATASE 57 U/L (32-122); BUN 92 mg/dL (8-22); CHLORIDE 105 mmol/L (98-107); COSMO 324; ESTIMATED GFR 33; GLUCOSE 98 mg/dL (70-104); GOT 7 U/L (10-34); GPT < 5 U/L (10-44); POTASSIUM 3.8 mmol/L (3.5-5.1); SODIUM 149 mmol/L (136-145); TCO2 31 mmol/L (25-35); TOTAL BILIRUBIN 0.68 mg/dL (0.20-1.00); TOTAL PROTEIN 4.6 g/dL (6.3-8.3)
--- NOTE | 2018-05-13 08:11 | Diag Imaging Result Doc PS360 ---
EXAM: CHEST-PORTABLE INDICATION: respiratory failure TECHNIQUE: One view COMPARISON: 05/12/2018 FINDINGS: Bilateral infiltrates suggesting pulmonary edema and small effusions are essentially stable. No new consolidation is identified. Cardiac silhouette is stable. IMPRESSION: Stable chest. Electronically signed by Malcom Otero 05/13/2018 8:09 AM
[2018-05-13] MEDS: VITAMIN B-12 PO SCH (08:22)
[2018-05-13] MEDS: ZYLOPRIM PO SCH (08:23)
[2018-05-13] MEDS: FOLIC ACID PO SCH (08:23)
[2018-05-13] MEDS: COREG PO SCH ×2 (08:26→20:03)
[2018-05-13] MEDS: ZYRTEC PO SCH (08:27)
[2018-05-13] MEDS: PROSCAR PO SCH (08:27)
--- NOTE | 2018-05-13 13:56 | PROGRESS NOTE ---
DATE: 05/13/2018 SUBJECTIVE: The patient has episodes of maroon-colored stool and dialysis, doing well. Unable to wean off nonrebreather. Family is at bedside. OBJECTIVE: Low grade fever. Heart rate is 104, blood pressure is dropping. HEENT: On 80%, slightly pale. Chest: Bilateral entry. Heart sounds are very distant. Belly is soft, nontender. Edema decreased. Some redness noted in the left leg. DIAGNOSTIC DATA: CBC with white cell count 10, hematocrit 29, platelets 187. PT is 26. INR is 2.2. SMA-7 shows sodium 149, potassium 3.8, BUN is 92, creatinine 2.0. LFTs were normal. Stool occult blood is positive. ASSESSMENT AND PLAN: 1. Upper gastrointestinal bleeding. Consult GI production analyst. 2. IgA deficiency. He is allergic to blood products. If he needs a transfusion, we have to do washed red blood cells which has been ordered 2 units. Continue IV Protonix. 3. Diastolic heart failure with respiratory failure, slowly wean off on Lasix 200 IV q.12 and Coreg 25 p.o. b.i.d. 4. Cellulitis of left leg, on IV Levaquin. 5. Atrial fibrillation, on Warfarin. Vitamin K was given. INR is coming down. Continue to hold on Warfarin. Discussed with the family at bedside. 6. Chronic kidney disease, 1.5 baseline, worsening due to diuresis. We will continue to monitor his status. Level of documentation is 25 minutes. cc: Seth Hines MD
[2018-05-13] MEDS: DUONEB (A & A) INH SCH ×3 (15:05→23:24)
[2018-05-13] MEDS ORDERED: VITAMIN K 10 MG in NS 50 ML IV ONE (15:21)
--- NOTE | 2018-05-13 16:40 | NEPHROLOGY PROGRESS NOTE ---
DATE: 05/13/2018 SUBJECTIVE: He states that he is feeling better. He did start having maroon stool in the last 24 hours. No pain. OBJECTIVE: Vital signs: Blood pressure 124/59, heart rate 102, respiratory rate 26 and T-Max 99.7. General: Chronically ill man on BiPAP. No acute distress. Skin: Warm and dry. HEENT: Conjunctivae are pink. Oropharynx is dry. Neck: Neck veins are not appreciated. Heart: Regular with a gallop rhythm. Lungs: Equal breath sounds with a few scattered wheezes. Abdomen: Soft and distended. Nontender. Bowel sounds present. Extremities: 2+ edema. No clubbing or cyanosis. IMPRESSION: Acute kidney injury overlying chronic kidney disease. Creatinine is stable though his BUN has risen rather dramatically. This is likely related to GI bleeding as opposed to an evolving prerenal state. Of course, he may have that as well. He remains moderately volume overloaded. We will continue his diuretics as ordered. Electrolytes and acid base are acceptable. He does still have moderate hypernatremia, but no changes thus far. Defer evaluation of his GI bleeding to Dr. Hines and Dr. Valdes. cc: MD Seth Borges MD
[2018-05-13] MEDS: LEVAQUIN 250 MG/D5W 250 MG/50 ML IVPB IV SCH (17:17)
[2018-05-13 19:06] LABS: HEMATOCRIT 23.5 % (42.0-52.0); HEMOGLOBIN 6.7 g/dL (14.0-18.0)
[2018-05-13] MEDS ORDERED: INJECTAFER 750 MG in NS 250 ML IV ONE (19:09)
--- NOTE | 2018-05-14 00:47 | GASTROENTEROLOGY CONSULTATION ---
DATE: 05/13/2018 ATTENDING PHYSICIAN: Dr. Hines. PRIMARY CARE PHYSICIAN: Dr. Hines. REASON FOR CONSULTATION: GI bleeding. HISTORY OF PRESENT ILLNESS: Mr. Hall is a 72-year-old male who was admitted on 05/09/2018 for altered mental status, shortness of breath, hypoxemia, weight gain, swelling in the feet with blisters. He was diagnosed with decompensated diastolic heart failure, with underlying chronic atrial fibrillation. He had been on Coumadin. He was coagulopathic. His Coumadin was held, and he was given vitamin K. In the interim, he started having liquid maroon stools. Gastroenterology was consulted for GI bleeding. 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 PAST SURGICAL HISTORY: Right cataract surgery, right nephrectomy due to oncocytoma. ALLERGIES: No known drug allergies. MEDICATIONS IN THE HOSPITAL: Tylenol, albuterol/ipratropium, allopurinol, Coreg, Zyrtec, cyanocobalamin, finasteride, folic acid, Lasix, Levaquin, nitroglycerin, Protonix, vitamin K. He is currently on a clear liquid diet. REVIEW OF SYSTEMS: Limited, as the patient was in the face mask. The patient does complain of mild discomfort in the abdomen. He denies any nausea or vomiting. He had been having maroon stools, starting today. He denies any nose bleeding or gum bleeding. PHYSICAL EXAMINATION: Vital Signs: Temperature 98.9 degrees, pulse rate 102, respiratory rate 26, blood pressure 116/53, saturating 99% on BiPAP at 70% FiO2. Body weight of 229 pounds 6 ounces. BMI of 37 kg/m2. General Appearance: Obese, lying in bed, in no acute distress. HEENT: Pale conjunctivae. No icterus. Face mask in place. Neck: Supple. Abdomen: Protuberant, obese. No guarding or rebound. Extremities: Bilateral lower extremity edema noted. Neurologic: Awake. He is on a face mask. He is getting a breathing treatment. He was able to answer some of my questions. LABS: Hemoglobin and hematocrit is 8.3 and 29, white count of 10.8, platelet count of 187,000. INR of 2.28. PT of 26.8. Sodium 149, potassium 3.8, chloride 105, bicarb 31, anion gap 13, BUN of 92, creatinine of 2, glucose of 98. Calcium 8. Total bilirubin is 0.6, AST 7, ALT less than 5, alkaline phosphatase 57, total protein 4.6, albumin 2.9. Stool for occult blood was positive. Chest x-ray done today showed bilateral infiltrates suggesting pulmonary edema and small effusions, essentially stable. No new consolidations identified. Abdominal ultrasound was done on 05/10, which showed cholelithiasis, diminished flow in the distal aorta, which may indicate some degree of stenosis, somewhat prominent spleen. IMPRESSION AND PLAN: 1. Upper gastrointestinal bleeding. 2. IgA deficiency. 3. Diastolic congestive heart failure, with pulmonary edema and pleural effusion. 4. Cellulitis of the left lower extremity, on IV Levaquin. 5. Atrial fibrillation, on Coumadin, which has been withheld. 6. Chronic kidney disease. 7. Anemia. 8. We will switch him to Protonix IV b.i.d. We will give another dose of vitamin K. We will switch him to a clear liquid diet. We will try to correct the INR. We will do serial hematocrits. 9. The patient has IgA deficiency, so you need to have a special kind of washed red blood cells for transfusion if needed. They have been ordered, and will be coming from [place], [place]. 10. We will call a consultation with Dr. Yañez to possibly start an iron infusion. 11. We will decide about endoscopic intervention based on his clinical outlook. The above plan was discussed with the patient and family and nursing staff. All questions answered. cc: MD Seth Cha MD
[2018-05-14] MEDS: DUONEB (A & A) INH SCH ×6 (02:57→23:38)
[2018-05-14] MEDS: LASIX IV SCH ×2 (04:06→16:26)
[2018-05-14] MEDS: PROTONIX IV SCH (04:07)
[2018-05-14 04:51] LABS: HEMATOCRIT 23.4 % (42.0-52.0); HEMOGLOBIN 6.8 g/dL (14.0-18.0)
[2018-05-14 04:53] LABS: INR 1.46; PROTIME 18.8 Seconds (11.0-16.0)
[2018-05-14] MEDS: NITROGLYCERIN TOP SCH ×4 (05:05→23:27)
[2018-05-14 05:23] LABS: ALLEN TEST YES; BE 12.1 mmoll (-3.0-3.0); BLOOD TYPE ARTERIAL; HCO3-(ACT) 34.3 mmoll (20.0-26.0); O2(CT) 8.7 mL/dL (15.0-23.0); O2HB 91.8 % (95.0-99.0); PCO2(98.6) 65 mmHg (35-45); PO2(98.6) 57 mmHg (60-100); SAMPLE BLOOD; SAO2 93.9 % (95.0-100.0); THB 6.7 g/dL (11.5-17.4); pH(98.6) 7.38 (7.35-7.45)
[2018-05-14 05:27] LABS: MODALITY PRB
[2018-05-14] MEDS ORDERED: VITAMIN K 10 MG in NS 50 ML IV ONE (07:59)
--- NOTE | 2018-05-14 08:05 | Diag Imaging Result Doc PS360 ---
EXAM: CHEST-PORTABLE INDICATION: respiratory failure TECHNIQUE: One view COMPARISON: 05/13/2018 FINDINGS: Diffuse infiltrates bilaterally suggesting pulmonary edema +/- pneumonia appear to be marginally worse. No other new consolidation is identified. Cardiac silhouette is stable. IMPRESSION: Marginal worsening. Electronically signed by Malcom Otero 05/14/2018 8:03 AM
[2018-05-14] MEDS: PROSCAR PO SCH (09:10)
[2018-05-14] MEDS: PROTONIX 80 MG in NS 80 ML IV SCH ×2 (09:10→18:17)
[2018-05-14] MEDS: FOLIC ACID PO SCH ×2 (09:10→09:17)
[2018-05-14] MEDS: VITAMIN B-12 PO SCH ×2 (09:10→09:17)
[2018-05-14] MEDS: ZYLOPRIM PO SCH (09:10)
[2018-05-14] MEDS: ZYRTEC PO SCH ×2 (09:10→09:18)
[2018-05-14] MEDS: ICAR-C PO SCH ×3 (09:10→20:13)
[2018-05-14] MEDS: CENTRUM SILVER PO SCH ×2 (09:10→09:16)
[2018-05-14] MEDS: COREG PO SCH ×2 (09:45→20:13)
[2018-05-14] MEDS ORDERED: INJECTAFER 750 MG in NS 250 ML IV ONE (11:00)
--- NOTE | 2018-05-14 11:04 | GASTROENTEROLOGY PROGRESS NOTE ---
DATE: 05/14/2018 SUBJECTIVE: Patient resting in bed. He is awake and answers simple questions. was present at the bedside. Overnight, he had 1 bowel movement, which was containing old blood. He received 1 dose of IV iron yesterday. We are awaiting the blood, which is specialized washed RBC containing blood from [place], [place]. No nausea, vomiting, vomiting blood. OBJECTIVE: Vital Signs: Temperature 97.9 degrees, pulse 101, respiratory rate 18, blood pressure of 99/58, saturating 93% on face mask 15 L of flow. General: The patient is moderately nourished, lying in bed in no acute distress. HEENT: Pale conjunctivae. No icterus. Face mask in place. Neck: Supple. Abdomen: Soft, obese, nontender, nondistended. No guarding. Extremities: No cyanosis or clubbing. Bilateral lower extremity edema noted. Neurologic: He was awake, alert, answering some questions. IMAGING AND LABORATORY DATA: His hemoglobin and hematocrit are 6.8 and 23.4, which is stable as compared to yesterday. INR 1.46, PT of 18.8. ABG showing pH 7.38, pCO2 of 65, PO2 of 57, this is on 70% FiO2. Chest x-ray done today showed marginal worsening bilaterally, suggesting pulmonary edema and pneumonia. No new consolidation is identified. IMPRESSION AND PLAN: 1. Gastrointestinal bleeding. Will switch to Protonix drip. Will give him 1 more dose of intravenous iron. Will transfuse once the special washed RBC blood arrives from [place]. 2. Will start him on Iron-C twice daily and multivitamin once daily for anemia. 3. Coagulopathy. Will give another dose of vitamin K today. 4. Will give him another dose of Iron Injectafer for today. 5. Atrial fibrillation. Aware. 6. Diastolic congestive heart failure, pulmonary edema, and pleural effusion. Aware. Being managed by the primary team. 7. IgG deficiency. Aware. 8. Will schedule him for esophagogastroduodenoscopy tomorrow if he is hemodynamically stable. The risks, benefits, indications, and alternatives were discussed with the patient and family at bedside, and all questions were answered. Please call us with any questions. cc: MD Seth Cha MD
[2018-05-14] MEDS ORDERED: NS 500 ML ONE (11:24)
[2018-05-14] MEDS ORDERED: NS 250 ML ONE (12:22)
--- NOTE | 2018-05-14 13:29 | Diag Imaging Result Doc PS360 ---
EXAM: CHEST-PORTABLE INDICATION: PICC line placement TECHNIQUE: One view COMPARISON: 05/14/2018 FINDINGS: There is a newly placed right PICC line. The tip projects over the lower SVC in the expected position. Diffuse bilateral infiltrates are stable. Cardiac silhouette is stable. IMPRESSION: Interval placement of right PICC line as described. Stable chest, otherwise. Electronically signed by Malcom Otero 05/14/2018 1:26 PM
--- NOTE | 2018-05-14 15:02 | PROGRESS NOTE ---
DATE: 05/14/2018 SUBJECTIVE: A 72-year-old white gentleman admitted to the hospital with decompensated diastolic heart failure with atrial fibrillation. Now presenting with GI bleeding, passing melanotic maroon stools, significant drop on hematocrit. I appreciate Dr. Pendleton, Dr. Yañez consults. The patient is diuresing very well. He also has a poor IV access. REVIEW OF SYSTEMS: On BiPAP. None reported other than bleeding per rectum. OBJECTIVE: Vital Signs: Temperature is 99.6, pulse is 94, blood pressure is 113/53, 80% FiO2. I's and O's: Last urine output 1700 mL. General: Slightly pale, on BiPAP. Hemodynamics are stable. Abdomen: Belly is soft, nontender. bloody stool noted. Decreased edema. INVESTIGATIONS: Hematocrit 23.4. PT 18, INR 1.46. ABG: pH is 7.38, pCO2 65, PO2 57 on 70%. Chest x-ray: Improved infiltrates. ASSESSMENT AND PLAN: 1. Decompensated diastolic heart failure. IV Lasix. Radiological picture on IV Lasix 200 q.12. 2. IgA deficiency. Anaphylactic reaction to the regular packed RBC. 3. Upper GI bleeding. Intravenous Protonix, transfusion of washed red blood cells as per Dr. Yañez. 4. Coagulopathy. INR is coming down after vitamin K, Coumadin is on hold. 5. Cellulitis of left leg, on IV Levaquin. 6. Living will, DNR. Check the labs in the morning. 7. Poor IV access. PICC line on the right side has been placed. 8. Discussed with the family. LEVEL OF DOCUMENTATION: 26 minutes. Appreciated consultants. cc: Seth Hines MD [facility]
[2018-05-14] MEDS: LEVAQUIN 250 MG/D5W 250 MG/50 ML IVPB IV SCH (18:17)
[2018-05-14 19:02] LABS: HEMATOCRIT 29.9 % (42.0-52.0)
[2018-05-15] MEDS: DUONEB (A & A) INH SCH ×6 (03:05→23:35)
[2018-05-15] MEDS: PROTONIX 80 MG in NS 80 ML IV SCH ×3 (04:01→23:43)
[2018-05-15] MEDS: NITROGLYCERIN TOP SCH ×4 (04:50→22:08)
[2018-05-15] MEDS: LASIX IV SCH (04:50)
[2018-05-15 05:02] LABS: INR 1.33; PROTIME 17.6 Seconds (11.0-16.0)
[2018-05-15 05:17] LABS: BASO# 0.01 X1000 (0.0-0.2); BASO% 0.1 % (0.0-0.8); EOS# 0.23 X1000 (0.0-0.7); EOS% 2.5 % (0.0-10.0); HEMATOCRIT 29.8 % (42.0-52.0); HEMOGLOBIN 8.8 g/dL (14.0-18.0); IMM GRAN# 0.06 X1000 (0.0-0.04); IMM GRAN% 0.7 % (0.0-0.5); LYMPH# 0.79 X1000 (1.2-3.4); LYMPH% 8.6 % (20.5-51.1); MCH 26.3 PG (27-31); MCHC 29.5 g/dL (33-37); MCV 89.2 FL (81-99); MONO# 1.08 X1000 (0.11-0.59); MONO% 11.8 % (1.7-9.3); MPV 10.7 FL (7.4-10.4); NEUT% 76.3 % (42.2-75.2); PLT 200 X1000 (130-400); RBC 3.34 XMIL (4.7-6.1); RDW 18.1 % (11.5-14.5); WBC 9.17 X1000 (4.8-10.8)
[2018-05-15 05:39] LABS: CALCIUM 8.8 mg/dL (8.8-10.2); CREATININE 1.9 mg/dL (0.7-1.2); POTASSIUM 3.5 mmol/L (3.5-5.1)
--- NOTE | 2018-05-15 07:13 | Diag Imaging Result Doc PS360 ---
EXAM: CHEST-PORTABLE 05/15/2018 HISTORY: respiratory failure TECHNIQUE: AP portable at 0523 COMMENT: There is extensive interstitial and alveolar opacity bilaterally as there was on 05/14/2018. This appears slightly worse in the bases. The heart size remains enlarged. IMPRESSION: Pulmonary edema versus pneumonia. Electronically signed by Reggie Slater 05/15/2018 7:11 AM
[2018-05-15] MEDS ORDERED: COLCRYS PO ONE (08:10)
[2018-05-15] MEDS ORDERED: NS 500 ML ONE (08:33)
[2018-05-15] MEDS: ZYRTEC PO SCH (09:48)
[2018-05-15] MEDS: ZYLOPRIM PO SCH (09:48)
[2018-05-15] MEDS: FOLIC ACID PO SCH (09:48)
[2018-05-15] MEDS: PROSCAR PO SCH (09:48)
[2018-05-15] MEDS: COREG PO SCH ×2 (09:48→20:53)
[2018-05-15] MEDS: ICAR-C PO SCH ×2 (09:48→20:53)
[2018-05-15] MEDS: CENTRUM SILVER PO SCH (09:48)
[2018-05-15] MEDS: VITAMIN B-12 PO SCH (09:48)
--- NOTE | 2018-05-15 10:24 | PULMONOLOGY PROGRESS NOTE ---
DATE: 05/15/2018 SUBJECTIVE: Patient is awake, alert, and conversant. He currently has BiPAP off with dropping oxygen saturations into the upper 70s. He is taking his morning medications. He is having some gout pain. He had a maroon stool earlier this morning by report. OBJECTIVE: Vital signs: The patient has been afebrile for the last 24 hours. BP 118/71, heart rate 98, respiratory rate 22, oxygen saturation 95% on BiPAP. HEENT: Pupils are equal and reactive. Oropharynx is clear. Neck: Supple. Chest: Reveals crackles bilaterally. Cardiac: S1, S2. Abdomen: Mildly distended but nontender. Extremities: Reveal trace to 1+ peripheral edema. LABORATORIES: Chest x-ray reveals pulmonary edema with increased vascular markings bilaterally. Possible mild worsening over the last 24 hours. White blood count 9.17, hemoglobin 8.8, platelet count 200,000. Sodium 146, potassium 3.5, chloride 102, bicarbonate 35, BUN 85, creatinine 1.9. Arterial blood gas, pH 7.38, pCO2 of 65, PO2 of 57 yesterday morning. IMPRESSION: This is a 72-year-old with diastolic heart failure, pulmonary hypertension, pulmonary edema, acute hypoxemic respiratory failure, acute hypercapnic respiratory failure, with chronic renal insufficiency. Patient's urine output remains marginal. The patient has developed an active GI bleed over the weekend and currently is receiving blood. RECOMMENDATION: 1. Continue to cycle BiPAP and high-flow oxygen or non-rebreather for respiratory failure. 2. Ongoing diuretics per Dr. Baldwin. 3. Transfusions today in an attempt to maintain hemoglobin greater than 7. His coagulopathy has been reversed. 4. Overall prognosis is poor. His end of life wishes have been discussed with Dr. Hines. cc: MD Seth Kenny MD
[2018-05-15] MEDS ORDERED: LASIX IV ONE (10:39)
--- NOTE | 2018-05-15 11:13 | NEPHROLOGY PROGRESS NOTE ---
DATE: 05/15/2018 TIME SEEN: 0720. SUBJECTIVE: Mr. Hall is resting quietly in bed. States that he feels like he is breathing a little bit better with less swelling. OBJECTIVE: His most recent vital signs: Temperature 97.4, blood pressure 115/ 67, heart rate 98, respirations 23. He is currently on a partial non-rebreather. Last recorded saturation is 93%. He has had 2720 in, 2350 out to Vines catheter. LABS: Sodium is 146, potassium 3.5, chloride 102, CO2 of 35, BUN 85, creatinine 1.9, glucose 112. Anion gap 9, calcium 8.8. Patient had a previous hemoglobin of 8.8 on the . White count 9.17, hematocrit 29.8 with a platelet count of 200. PHYSICAL EXAMINATION: General: This is a 72-year-old, white male. He is currently resting quietly in bed. He remains on O2 support. HEENT: Normocephalic, atraumatic. Conjunctiva is pale pink. He has ROD. Mucous membranes are dry. Neck: Supple. Trachea midline. No evidence of JVD. Cardiovascular: He is regular rate and rhythm. Tachycardic on the monitor. Lungs: Have scattered wheezing bilateral with O2 support. Abdomen: Slightly distant bowel sounds. Genitourinary: Not inspected. Vines catheter is in place. Extremities: Have 2+ edema. ASSESSMENT AND PLAN: 1. Acute kidney injury overlying chronic kidney disease. The patient is requiring frequent doses of diuretics for his swelling. His BUN remains elevated at 85, though this is likely related to his gastrointestinal bleed. BUN and creatinine have slowly improved. BUN of 85, creatinine 1.9. We will continue to monitor. 2. Electrolytes and acid-base balance. These are stable. 3. Anemia. This remains close to target. We will defer further evaluations for his gastrointestinal bleeding to Dr. Hines and Dr. Dsouza. I would like to thank you for allowing us to follow with this patient. Dictated by YRN Ojeda for Rafael Baldwin MD Face to face encounter, data reviewed, discussed with Nicci Suarez on 05/15/18. I agree with the above assessment and plan of care. cc: YRN Ojeda MD Jagan Reddy MD [facility]
--- NOTE | 2018-05-15 11:30 | GASTROENTEROLOGY PROGRESS NOTE ---
DATE: 05/15/2018 SUBJECTIVE: Patient resting in bed. He is on a BiPAP mask. His was at bedside. The patient and family decided not to proceed with EGD at this moment so we will cancel the procedure. The patient has received blood transfusion yesterday, 2 units. His hematocrit is so far stable. He had 1 bowel movement today which was liquid maroon with old blood. OBJECTIVE: Vitals: Temperature of 98.4 degrees, pulse rate 107 respiratory rate 21, blood pressure 120/91, saturating 92% on BiPAP. General appearance: Moderately built, moderately nourished, lying in bed, in no acute distress. HEENT: Pale conjunctivae, no icterus. Face mask in place. Neck: Supple. Abdomen is obese, soft, nontender, nondistended. Extremities: Bilateral lower extremity edema. Neurologic: He is awake, alert, and answers questions. LABORATORIES: Hemoglobin and hematocrit is 8.8, 29.8, white count of 9.17, platelet count 200,000. INR 1.33, PT of 17.6, sodium 146, potassium 3.5, chloride 102, bicarb of 35, anion gap of 9, BUN of 85, creatinine 1.9, glucose 112, calcium is 8.8, uric acid is 8.9. IMAGING: Chest x-ray done today. Showed pulmonary edema versus pneumonia. There is extensive interstitial and alveolar opacity bilaterally. This appears slightly worse in the bases. IMPRESSION AND PLAN: 1. Diastolic congestive heart failure. 2. Pulmonary hypertension pulmonary edema. Acute hypoxic respiratory failure. Acute hypercapnic respiratory failure. This is being monitored by Pulmonary Team. He is on BiPAP and diuretics. 3. Gastrointestinal bleed. He has received 2 units of blood transfusion. Continue to follow hemoglobin and hematocrit. We will keep him on Protonix. We will cancel the EGD for today. We will reassess him tomorrow. I will talk to the family tomorrow if they will be interested to pursue the procedure. At this moment, patient is in respiratory failure. His risk of any procedure, including esophagogastroduodenoscopy is higher. We will continue to follow. 4. Anemia. Continue to watch for now. Transfuse as needed. 5. Coagulopathy has been reversed with vitamin K. 6. IgA deficiency, aware. 7. Cellulitis of left leg. He is on IV Levaquin. The above plan of care was discussed with the patient and family at bedside and all questions answered. Please call us with any further questions. I also spoke with Dr. Hines. cc: MD Seth Cha MD
[2018-05-15] MEDS: LASIX 200 MG in NS 25 ML IV SCH (17:46)
[2018-05-15] MEDS: LEVAQUIN 250 MG/D5W 250 MG/50 ML IVPB IV SCH (18:23)
--- NOTE | 2018-05-15 19:22 | PROGRESS NOTE ---
DATE: 05/15/2018 SUBJECTIVE: The patient complains of left ankle pain. He is little bit more hypoxemic after blood transfusion. So far, he received washed red blood cells x 4. He is still on BiPAP and slightly pale. OBJECTIVE: Vital Signs: Temp is 98, pulse is 101, blood pressure 118/60. Chest: Chest is bilaterally air entry. Heart: Irregular heart sounds. Abdomen: Belly is soft , nontender. Extremities: Edema decreasing. Left ankle is inflamed. LAB DATA: White cell count 9.1, hematocrit 29, platelets 200,000. PT 17.6, INR 1.3. SMA-7: Sodium 146, potassium 3.5, BUN 85, creatinine 1.9, uric acid 8.9. ASSESSMENT AND PLAN: 1. Upper GI bleeding. Not stable enough for conscious sedation for EGD. Hold on the procedure. Restart on clear liquids. 2. Left ankle pain due to gout. Continue on allopurinol. Cultures and one dose was given. 3. Anemia due to GI bleeding. Status post 4 units of washed red blood cells. Continue on IV Protonix. 4. Decompensated diastolic heart failure with atrial fibrillation. Continue on BiPAP and IV Lasix 200 mg q.12. 5. Warfarin coagulopathy. Off warfarin, status post vitamin K. INR is stable. The patient will be transferred to the [facility], living will, DNR. Continue to monitor his progress. 6. Will check the labs in the morning. LEVEL OF DOCUMENTATION: 25 minutes. cc: Seth Hines MD MTDD
[2018-05-15 22:01] LABS: HEMATOCRIT 34.6 % (42.0-52.0); HEMOGLOBIN 10.5 g/dL (14.0-18.0)
--- NOTE | 2018-05-15 23:39 | HEMO/ONC CONSULTATION ---
DATE: 05/15/2018 CHIEF COMPLAINT: We are being consulted for further evaluation of patient's IgA deficiency and anemia. HISTORY OF PRESENT ILLNESS: Mr. Hall is a 72-year-old male that presented to Dr. Hiens's office complaining of altered mental status, shortness of breath, weight gain, swelling of the lower extremities, and oozing fluid in both legs. The patient said that has been going on for a week prior to coming to Dr. Hines's office. In Dr. Hines's office, the patient was hypoxic, had a chest x-ray that showed cardiomegaly with increased pulmonary vasculature. He had 4+ pedal edema at that time, as well as fluid in the abdominal region. The patient was sent to the emergency department for further evaluation due to decompensated systolic heart failure, with underlying chronic atrial fibrillation. The patient since being admitted has been in the ICU on BiPAP due to respiratory failure. The patient has also had a GI bleed, and is being followed by Gastroenterology. The patient, due to his anemia, has received a few units of packed red blood cells as well. The most recent chest x-ray shows increasing pulmonary edema versus pneumonia. PAST MEDICAL HISTORY: Diastolic heart failure, obesity, status post nephrectomy for malignancy, hypertension, chronic renal failure, diabetes mellitus, chronic atrial fibrillation, BPH, history of basal cell carcinoma, status post right cataract surgery. SOCIAL HISTORY: Denies any tobacco, alcohol, illicit drug use. FAMILY HISTORY: Positive for heart failure. ALLERGIES: The patient is allergic to packed red blood cells, unless they are washed. HOME MEDICATIONS: Zosyn, allopurinol, Norvasc, Coreg, Zyrtec, vitamin B12, finasteride, folic acid, Lasix, and Coumadin. REVIEW OF SYSTEMS: Negative, unless mentioned in HPI. PHYSICAL EXAMINATION: Vital Signs: Temperature 97.4 degrees, heart rate 98, respiratory rate 22, blood pressure 118/71, saturating 95% on BiPAP. General: Patient is awake, lying in bed, resting comfortably on what appears to be BiPAP. HEENT: Anicteric. Pupils PERRLA. Mucous membranes dry. Neck: Supple. Trachea midline. No evidence of lymphadenopathy. Chest: Breath sounds with crackles bilaterally. Cardiovascular: S1, S2. Regular rate and rhythm. Abdomen: Soft, mildly distended, nontender. Bowel sounds present in all 4 quadrants. Extremities: Trace to 1+ edema. Skin: Warm, dry, and intact. No petechiae, no clubbing, no cyanosis. Neurologic: Alert and oriented x3. No focal deficits noted. LABORATORY DATA: White blood cell count 9.17, hemoglobin 8.8, hematocrit 29.8, platelets are 200. Potassium 3.5, BUN 85, creatinine 1.9. ASSESSMENT AND PLAN: 1. Anemia: The patient has IgA deficiency and needs washed packed red blood cells. Patient has already received 2 units of packed red blood cells, and going to receive 2 more today. Anemia is being caused by the patient's GI bleed at this time. Gastroenterology has been consulted. The patient is also status post 1 dose intravenous iron also. Continue to monitor counts closely. 2. Diastolic congestive heart failure: Continue recommendations by primary medical team. 3. Acute hypoxic respiratory failure: Continue recommendations by Pulmonary team. 4. Gastrointestinal bleed: Continue to follow recommendations by Gastroenterology. Continue to monitor. 5. IgA deficiency: If the patient requires transfusion, will need washed packed red blood cells. Continue to monitor. 6. Hypertension. Continue medication per primary medical team. 7. Acute kidney injury on top of chronic kidney disease: Continue recommendations by Nephrology. Plan of care discussed with Dr. Yañez. Dictated by YRN Amin for Baron Yañez MD cc: YRN Amin MD Jagan Reddy, MD MTDD
[2018-05-16] MEDS: DUONEB (A & A) INH SCH ×6 (03:20→23:13)
[2018-05-16] MEDS: LASIX 200 MG in NS 25 ML IV SCH ×2 (04:42→16:57)
[2018-05-16] MEDS: NITROGLYCERIN TOP SCH ×4 (04:42→23:00)
[2018-05-16 05:46] LABS: ALLEN TEST YES; BE 12.9 mmoll (-3.0-3.0); BLOOD TYPE ARTERIAL; HCO3-(ACT) 34.9 mmoll (20.0-26.0); METHB 1.3 % (0.0-1.5); O2(CT) 14.4 mL/dL (15.0-23.0); O2HB 91.4 % (95.0-99.0); PO2(98.6) 63 mmHg (60-100); SAMPLE BLOOD; SAO2 94.3 % (95.0-100.0); THB 11.2 g/dL (11.5-17.4); pH(98.6) 7.42 (7.35-7.45)
[2018-05-16 05:51] LABS: MODALITY BI PAP
[2018-05-16 05:52] LABS: PCO2(98.6) 61 mmHg (35-45)
[2018-05-16 06:00] LABS: BASO% 0.1 % (0.0-0.8); EOS% 3.2 % (0.0-10.0); HEMATOCRIT 35.9 % (42.0-52.0); HEMOGLOBIN 10.8 g/dL (14.0-18.0); IMM GRAN% 0.7 % (0.0-0.5); LYMPH# 0.94 X1000 (1.2-3.4); LYMPH% 10.6 % (20.5-51.1); MCH 27.3 PG (27-31); MCHC 30.1 g/dL (33-37); MCV 90.9 FL (81-99); MONO% 9.2 % (1.7-9.3); MPV 10.6 FL (7.4-10.4); NEUT# 6.73 X1000 (1.4-6.5); NEUT% 76.2 % (42.2-75.2); PLT 189 X1000 (130-400); RBC 3.95 XMIL (4.7-6.1); RDW 17.5 % (11.5-14.5); WBC 8.83 X1000 (4.8-10.8)
[2018-05-16 06:01] LABS: BASO# 0.01 X1000 (0.0-0.2); EOS# 0.28 X1000 (0.0-0.7); IMM GRAN# 0.06 X1000 (0.0-0.04); MONO# 0.81 X1000 (0.11-0.59)
[2018-05-16 06:04] LABS: INR 1.25; PROTIME 16.7 Seconds (11.0-16.0)
[2018-05-16 06:25] LABS: CALCIUM 8.8 mg/dL (8.8-10.2); CREATININE 1.5 mg/dL (0.7-1.2); POTASSIUM 3.5 mmol/L (3.5-5.1)
--- NOTE | 2018-05-16 06:49 | Diag Imaging Result Doc PS360 ---
EXAM: CHEST-PORTABLE HISTORY: respiratory failure TECHNIQUE: Portable chest single view COMPARISON: 05/15/2018 FINDINGS: No change in the right-sided PICC line. There are dense bilateral infiltrates. The heart is borderline mildly prominent and there are tiny pleural effusions. IMPRESSION: No interval improvement. Electronically signed by Uri Porter 05/16/2018 6:47 AM
[2018-05-16 09:20] LABS: HEMATOCRIT 35.8 % (42.0-52.0); HEMOGLOBIN 10.7 g/dL (14.0-18.0)
[2018-05-16] MEDS: ZYRTEC PO SCH (09:54)
[2018-05-16] MEDS: VITAMIN B-12 PO SCH (09:54)
[2018-05-16] MEDS: CENTRUM SILVER PO SCH (09:54)
[2018-05-16] MEDS: COREG PO SCH ×2 (09:54→20:22)
[2018-05-16] MEDS: FOLIC ACID PO SCH (09:54)
[2018-05-16] MEDS: PROTONIX 80 MG in NS 80 ML IV SCH ×2 (09:55→20:26)
[2018-05-16] MEDS: COLCRYS PO SCH (09:55)
[2018-05-16] MEDS: ZYLOPRIM PO SCH (09:55)
[2018-05-16] MEDS: PROSCAR PO SCH (09:55)
[2018-05-16] MEDS: ICAR-C PO SCH ×2 (09:55→20:22)
[2018-05-16] MEDS: LEVAQUIN 250 MG/D5W 250 MG/50 ML IVPB IV SCH (17:59)
[2018-05-16 20:42] LABS: HEMATOCRIT 36.7 % (42.0-52.0); HEMOGLOBIN 10.9 g/dL (14.0-18.0)
--- NOTE | 2018-05-16 22:56 | NEPHROLOGY PROGRESS NOTE ---
DATE: 05/16/2018 TIME SEEN: 0815 SUBJECTIVE: Mr. Hall is resting quietly in bed, head of the bed is elevated. He states that he is feeling fair. Continues with his BiPAP in place. VITAL SIGNS: Temperature 98 degrees, blood pressure 115/63, heart rate 102, respirations 22, he is on 90% BiPAP. Last recorded saturation 95%, he has had 1948 in with 1 L out to Vines catheter. LAB: Sodium 150, potassium 3.5, chloride 105, bicarb 35, BUN 73, creatinine 1.5, glucose 104, anion gap is 10, calcium 8.8, white count 8.83, hemoglobin 10.8, hematocrit 35.3 with a platelet count of 189,000. His pro time is 16.7 with an INR of 1.25. ABGs, pH 7.42, CO2 61, PO2 63, bicarb 34.9 on BiPAP of 90%. PHYSICAL EXAM: This is a 72-year-old white male resting quietly in bed. He remains on O2 support, no acute distress. Appears chronically ill.Skin: Warm and dry. HEENT : Normocephalic, atraumatic. Conjunctiva is pale pink. He has ROD. Mucous membranes are dry. Neck: Supple. Trachea midline. No evidence of JVD. Cardiovascular: Regular rate and rhythm. Tachycardic on the monitor. Lungs: Have scattered wheezing bilateral on inspiration. Abdomen : Slightly distant bowel sounds. Genitourinary: Not inspected. Vines catheter is in place. Extremities: Have 2+ edema. Neurological: He is alert to person and to place. ASSESSMENT AND PLAN: 1. Acute kidney injury overlying chronic kidney disease. Creatinine remains stable. Patient is requiring frequent doses of diuretics for diuresis. BUN and creatinine remain fairly stable. Adequate urine out. 2. Electrolytes, acid-base balance. These remain stable. 3. Anemia. Patient has been transfused during this hospital stay followed by gastroenterology. Like to thank you for allowing us to follow with this patient. Dictated by YRN Ojeda for Rafael Baldwin MD Face to face encounter, data reviewed, discussed with Aleshia Suarez on 05/16/18. I agree with the above assessment and plan of care. cc: YRN Ojeda MD Jagan Reddy, MD [facility]
--- NOTE | 2018-05-16 23:53 | PROGRESS NOTE ---
DATE: 05/16/2018 SUBJECTIVE: The patient received multiple blood transfusions, almost 4 units, and causing a little bit more wet in the lungs. Dr. Meza gave extra Lasix. He is diuresing very well. He is still on BiPAP, 80%. Chest x-ray worsening. He also has gout in the left ankle. PHYSICAL EXAMINATION: Vital Signs: Low-grade fever. Vitals are stable on BiPAP machine. I's and O's are now -850 mL. Chest: Congested. Heart: Sounds are irregular. Belly is soft, nontender. Extremities: Decreased edema. LABORATORY DATA: CBC: White cell count 8.8, hematocrit 35, platelets 189,000. PT 16. INR 1.25. ABG: pH is 7.42, pCO2 61, PO2 63, on 90%. SMA-7: Sodium 150, potassium 3.5, BUN 73, creatinine 1.5. Uric acid is 8.9. ASSESSMENT AND PLAN: 1. Acute decompensated diastolic heart failure, worsening after blood transfusion. 2. Acute hypoxemia and hypercarbia, due to underlying chronic obstructive pulmonary disease and congestive heart failure, on BiPAP, as per Dr. Meza. 3. Upper gastrointestinal bleeding. Stable. IV Protonix. Off Coumadin. Status post 4 units of packed RBCs. 4. IgA deficiency. As a result, he got transfused washed red blood cells, without anaphylaxis. Also, transfusion of 1 bag of Injectafer. Currently stable. 5. Left ankle gout. Continue on allopurinol. Colchicine 0.6 mg by mouth every day for 5 days. Avoid NSAIDs. 6. Will follow up on the daily labs. Currently, patient does not need dialysis. Renal function slowly improving. 7. Living will, DNR. LEVEL OF DOCUMENTATION: 25 minutes. cc: Seth Hines MD
--- NOTE | 2018-05-17 03:18 | PULMONOLOGY PROGRESS NOTE ---
DATE: 05/16/2018 SUBJECTIVE: The patient has had sometime off the BiPAP but does quickly desaturate. He has had some broth to drink. He has remained on BiPAP. OBJECTIVE: Vital Signs: The patient has been afebrile over the last 24 hours. Blood pressure 117/59, heart rate 102, respiratory rate 24, oxygen saturation 88%. HEENT: Pupils are equal and reactive. Oropharynx appears dry with BiPAP in place. Neck: Supple. Chest: Reveals shallow breath sounds with scattered crackles bilaterally. Cardiac: S1, S2. Abdomen: Obese and soft. Extremities: Reveal +1 edema. LABORATORY DATA: Chest x-ray reveals vascular congestion with pulmonary edema bilaterally. White blood count 8.83, hemoglobin 10.8, platelet count 189,000. Arterial blood gas, pH 7.42, pCO2 of 61, PO2 of 63. IMPRESSION: The patient is a 72-year-old with diastolic heart failure, pulmonary hypertension, pulmonary edema, acute hypoxemic respiratory failure, acute hypercapnic respiratory failure, and chronic renal insufficiency. The patient received 600 mg a Lasix yesterday and only had 1 L output. He did receive significant blood products yesterday without significant worsening of his status, but he continues to require high-flow oxygen. RECOMMENDATIONS: 1. Continue BiPAP as tolerated. 2. Continue diuretics as tolerated. 3. Overall prognosis is poor. His end of life wishes have been addressed by Dr. Hines. cc: MD Seth Kenny MD
[2018-05-17] MEDS: DUONEB (A & A) INH SCH ×6 (03:51→23:20)
--- NOTE | 2018-05-17 03:51 | GASTROENTEROLOGY PROGRESS NOTE ---
DATE: 05/16/2018 SUBJECTIVE: No acute overnight events. Afebrile. Patient continues to require BiPAP. Denies any abdominal pain, nausea, or vomiting. No persistent rectal bleeding. OBJECTIVE: Vital Signs: Temperature 97.6, heart rate of 118, respiratory rate 25, blood pressure 115/63, O2 saturation 86% on 100% BiPAP. Generally, awake, alert, in respiratory distress. Neck: No JVD. HEENT: Anicteric. Extraocular motor intact. Cardiac: Tachycardiac. No obvious murmurs. Lungs: Shallow breathing, tachypnea, decreased breath sounds throughout. No audible crackles or wheezing. Abdomen obese, soft, nontender, nondistended. Normoactive bowel sounds. No rebound or guarding. Lower extremities: No clubbing, cyanosis, edema. LABORATORY DATA: White count of 8.8, hemoglobin 10.7 from 10.5 yesterday, platelets of 189,000. INR of 1.25. Sodium 115, potassium 3.5, chloride of 105, bicarb 35. BUN 73, creatinine 1.5, glucose of 104. IMAGING: Chest x-ray shows dense bilateral infiltrates and tiny pleural effusions. No interval improvement. ASSESSMENT AND PLAN: Mr. Hall is a 72-year-old gentleman who presents with acute hypoxic and hypercapnic respiratory failure and gastrointestinal bleed. He is status post 4 units of packed red blood cells. Last blood transfusion was yesterday. Hemoglobin remains stable without overt bleeding currently. He continues to require BiPAP for his hypoxia and respiratory distress. I spoke with the patient and family at bedside about risk of endoscopic procedures in the setting of his current continuous respiratory status. We will continue to transfuse appropriately to maintain hemoglobin between 7 and 8 and trend his hemoglobin. We will hold off on any endoscopic procedures at this time given his anesthesia and pulmonary risk. We will keep him on PPI for now and trend his hemoglobin. Coagulopathy. INR is currently appropriate at 1.25. IgA deficiency is aware. Cellulitis of the left leg, currently on Levaquin. Pulmonary hypertension and pulmonary edema. Pulmonary is following. He is currently on BiPAP and diuretics as per their recommendations. We will continue to follow. Please call with any questions or concerns. cc: Seth Hines MD
[2018-05-17] MEDS: PROTONIX 80 MG in NS 80 ML IV SCH (05:06)
[2018-05-17] MEDS: LASIX 200 MG in NS 25 ML IV SCH ×2 (05:06→17:21)
[2018-05-17] MEDS: NITROGLYCERIN TOP SCH ×3 (05:06→16:46)
[2018-05-17 05:34] LABS: BASO# 0.01 X1000 (0.0-0.2); BASO% 0.1 % (0.0-0.8); EOS# 0.16 X1000 (0.0-0.7); EOS% 1.4 % (0.0-10.0); HEMATOCRIT 36.2 % (42.0-52.0); HEMOGLOBIN 10.7 g/dL (14.0-18.0); IMM GRAN# 0.08 X1000 (0.0-0.04); IMM GRAN% 0.7 % (0.0-0.5); LYMPH# 0.88 X1000 (1.2-3.4); LYMPH% 7.8 % (20.5-51.1); MCH 27.4 PG (27-31); MCHC 29.6 g/dL (33-37); MCV 92.6 FL (81-99); MONO% 11.6 % (1.7-9.3); MPV 10.7 FL (7.4-10.4); NEUT% 78.4 % (42.2-75.2); PLT 189 X1000 (130-400); RBC 3.91 XMIL (4.7-6.1); RDW 18.1 % (11.5-14.5); WBC 11.23 X1000 (4.8-10.8)
[2018-05-17 06:50] LABS: CALCIUM 8.3 mg/dL (8.8-10.2); CREATININE 1.7 mg/dL (0.7-1.2); POTASSIUM 3.3 mmol/L (3.5-5.1)
--- NOTE | 2018-05-17 07:00 | HEMO/ONC PROGRESS NOTE ---
DATE: 05/16/2018 SUBJECTIVE: The patient continues to be short of breath. Continues to wear BiPAP. OBJECTIVE: Vital Signs: Temp of 97.6, heart rate 118, respiratory rate 25, blood pressure 132/67, satting 90% on BiPAP. General: Patient is awake, lying in bed. Continues to be short of breath. HEENT: Anicteric. Pupils PERRLA. Mucosa dry. Cardiovascular: Cardiovascular S1, S2. Increased rate and rhythm. Chest: Bilateral breath sounds with crackles bilaterally and diminished bilaterally. Abdomen: Soft, nontender. Bowel sounds present in all 4 quadrants. Neurologic: Alert and oriented x 3. No focal deficits noted. LABORATORY DATA: White cell count is 8.83, hemoglobin 10.7, hematocrit 35.8, platelets are 189,000. Sodium 150, potassium 3.5, BUN 73, creatinine 1.5. ASSESSMENT AND PLAN: 1. Anemia: Patient received total 4 units of washed packed red blood cells. Hemoglobin and hematocrit improved. Continue to monitor closely. 2. Diastolic congestive heart failure: Continue recommendations per medical team. 3. Acute hypoxemic respiratory failure: Continue recommendations per pulmonary team. 4. Gastrointestinal bleed: Continue with PPIs. Continue recommendations per Gastroenterology. Continue to transfuse as needed. 5. IgA deficiency. If the patient requires infusion, make sure he receives washed packed red blood cells. Plan of care discussed with Dr. Yañez. Dictated by YRN Amin for Baron Yañez MD cc: YRN Amin MD Jagan Reddy, MD [facility]
[2018-05-17] MEDS ORDERED: BLISTEX MEDICATED BERRY LIP BALM TOP ONE (07:20)
--- NOTE | 2018-05-17 07:52 | Diag Imaging Result Doc PS360 ---
EXAM: CHEST-PORTABLE INDICATION: respiratory failure TECHNIQUE: One view COMPARISON: 05/16/2018 FINDINGS: The right PICC line is in stable position. Extensive diffuse bilateral infiltrates are stable to marginally worse. No definite new consolidation is identified. Cardiac silhouette is stable. IMPRESSION: Stable to marginally worse diffuse bilateral infiltrates. Electronically signed by Malcom Otero 05/17/2018 7:50 AM
[2018-05-17] MEDS: PROTONIX IV SCH ×2 (08:16→20:34)
[2018-05-17] MEDS: ZYLOPRIM PO SCH (08:16)
[2018-05-17] MEDS: ICAR-C PO SCH ×2 (08:17→20:27)
[2018-05-17] MEDS: COLCRYS PO SCH (08:17)
[2018-05-17] MEDS: VITAMIN B-12 PO SCH (08:17)
[2018-05-17] MEDS: FOLIC ACID PO SCH (08:17)
[2018-05-17] MEDS: PROSCAR PO SCH (08:18)
[2018-05-17] MEDS: CENTRUM SILVER PO SCH (08:18)
[2018-05-17] MEDS: COREG PO SCH ×2 (08:18→20:27)
[2018-05-17] MEDS: ZYRTEC PO SCH (08:18)
[2018-05-17] MEDS ORDERED: POTASSIUM CHLORIDE 40 MEQ/SWI 40 MEQ/100 ML IVPB IV ONE (08:30)
[2018-05-17 09:06] LABS: HEMOGLOBIN 10.9 g/dL (14.0-18.0)
--- NOTE | 2018-05-17 09:16 | NEPHROLOGY PROGRESS NOTE ---
DATE: 05/17/2018 TIME SEEN: 0745. SUBJECTIVE: Mr. Hall is resting quietly in bed. The head of the bed is elevated. He remains on BiPAP 90%. He is awake and alert. OBJECTIVE: Vital Signs: Temperature 98.5 degrees, blood pressure 109/54, heart rate 106, respirations 26. He is on 90% BiPAP. Last recorded saturation 100%. He has had 150 in and 2160 out to Vines catheter. Labs: Sodium 149, potassium 3.3, chloride is 103, CO2 35, BUN 74, creatinine 1.7, glucose 113, anion gap of 11, calcium 8.3. White count 11.23, hemoglobin 10.7, hematocrit 36.2, with a platelet count of 189,000. Physical Examination: General: This is a 72-year-old, white male resting quietly in bed. He appears chronically ill. He is in no acute distress. Skin: Warm and dry. HEENT: Normocephalic, atraumatic. Conjunctivae are pale. He has ROD. Mucous membranes dry. Neck: Supple. Trachea midline. No JVD. Cardiovascular: Regular rate and rhythm. Tachycardic on the monitor. No murmur or gallop appreciated. Lungs: Clear to auscultation anteriorly. Equal excursion. A few coarse breath sounds. Abdomen: Slightly distended. Distant bowel sounds. Round and nontender. Genitourinary: Not inspected. Vines catheter is in place with adequate urine out. Extremities: Continues with 2+ to 3+ lower extremity edema. Neurological: He is alert to person and to place. ASSESSMENT AND PLAN: 1. Acute kidney injury overlying chronic kidney disease. His creatinine remains at his historical baseline. He remains on diuretic therapy with BiPAP. Adequate urine output. 2. Electrolytes and acid-base balance. The patient has mild hypokalemia. The patient has potassium ordered this morning per primary care. 3. Acid-base balance. This is stable. 4. Anemia. This is acceptable. I would like to thank you for allowing us to follow with this patient. Dictated by YRN Ojeda for Rafael Baldwin MD Face to face encounter, data reviewed, discussed with Nicci Suarez on 05/17/18. I agree with the above assessment and plan of care. cc: YRN Ojeda MD Jagan Reddy, MD MTDD
[2018-05-17 09:41] LABS: HEMATOCRIT 36.8 % (42.0-52.0)
--- NOTE | 2018-05-17 11:42 | GASTROENTEROLOGY PROGRESS NOTE ---
DATE: 05/17/2018 SUBJECTIVE: No acute overnight events, afebrile. The patient reports worsening dyspnea requiring BiPAP on 100% of oxygen. He denies any abdominal pain, nausea, or vomiting. He has not had any bowel movements. No reported rectal bleeding. OBJECTIVE: Vital Signs: Temperature 98.3 degrees, heart rate of 103, respiratory rate 25, blood pressure 110/55, and O2 saturation of 88% on 100% O2 and BiPAP. Generally: Patient is awake, alert in moderate respiratory distress on BiPAP. HEENT: Anicteric sclerae. Moist mucous membranes. Neck: No obvious JVD. No lymphadenopathy. Cardiac: Tachycardic and regular. No murmurs. Lungs: Labored breathing. Coarse breath sounds throughout. No audible wheezing. Abdomen: Obese, soft, nontender, nondistended. Normoactive bowel sounds. No rebound or guarding. Extremities: No obvious clubbing, cyanosis, or edema. Neuro: Nonfocal. LABS: Hemoglobin of 10.9 from 10.7 yesterday. Chest x-ray done last evening shows stable-to- marginally worse diffuse bilateral infiltrates. ASSESSMENT AND PLAN: 1. Mr. Hall is a 72-year-old gentleman, who was admitted for hypoxic and hypercapnic respiratory failure and gastrointestinal bleeding. He is status post 4 units of packed red blood cells. He has not required any further transfusion at this time, and his hemoglobin has remained stable. He continued to require high O2 requirements and is on BiPAP. I spoke extensively with the patient and family at bedside that he is at high risk for any endoscopic procedures from a pulmonary and anesthesia standpoint. We will continue to treat supportively with PPI IV twice a day and trend his hemoglobin daily and transfuse as needed for hemoglobin goal of 7 to 8. 2. Cellulitis, currently on Levaquin. 3. Pulmonary hypertension and pulmonary edema. Pulmonary is following. 4. Acute on chronic kidney disease. Creatinine appears to be a baseline. Currently, on diuretics. Followed by Nephrology. Appreciate recommendations. Plan discussed with family and patient at bedside. All questions were answered. We will continue to follow. Please call with any questions or concerns. cc: Seth Hines MD
--- NOTE | 2018-05-17 12:10 | HEMO/ONC PROGRESS NOTE ---
DATE: 05/17/2018 SUBJECTIVE: Patient is resting in bed. Patient continues to be on BiPAP. OBJECTIVE: Vital Signs: Temperature 98.5 degrees, heart rate 106, respiratory rate 24, blood pressure 109/54, saturating 100% on BiPAP. General: Patient resting quietly in bed, no acute distress noted. Chest: Breath sounds diminished bilaterally. Cardiovascular: S1, S2. Increased rate and rhythm. Abdomen: Slightly distended. Bowel sounds present, nontender. Neurologic: Alert and oriented x2. LABORATORY DATA: White blood cell count is 11.23, hemoglobin 10.9, hematocrit 36.8, platelets are 189. Potassium 3.3, BUN 74, creatinine 1.7. ASSESSMENT AND PLAN: 1. Anemia: Hemoglobin and hematocrit continue to be stable at this time. Continue to monitor closely. Transfuse with washed packed red blood cells as needed. We will continue to monitor. 2. Congestive heart failure: Continue medication per primary medical team. 3. Acute hypoxic respiratory failure: Continue recommendations per Pulmonology. 4. Gastrointestinal bleed: Continue recommendations per Gastroenterology. 5. Acute kidney injury on top of overlying chronic kidney disease. Continue recommendations per Nephrology. 6. IgA deficiency: If the patient requires any infusions, make sure it is washed packed red blood cells. Continue to monitor. Dictated by YRN Amin for Baron Yañez MD cc: YRN Amin MD Jagan Reddy, MD
[2018-05-17] MEDS: BENADRYL IV PRN ×2 (16:47→21:55)
[2018-05-17] MEDS: LEVAQUIN 250 MG/D5W 250 MG/50 ML IVPB IV SCH (17:21)
[2018-05-17 21:32] LABS: HEMATOCRIT 37.5 % (42.0-52.0); HEMOGLOBIN 11.1 g/dL (14.0-18.0)
[2018-05-18] MEDS: NITROGLYCERIN TOP SCH ×2 (01:06→05:15)
--- NOTE | 2018-05-18 01:15 | PROGRESS NOTE ---
DATE: 05/17/2018 SUBJECTIVE: I appreciated all the consultants. His oxygenation is not improving. Chest x-rays is worsening possible aspiration. May be volume overload from the blood transfusion. He was given 680 mg of IV Lasix. Diuresing very well but still on BiPAP. OBJECTIVE: Vital Signs: He has a temperature of 100 degrees. Vitals are stable. He is on BiPAP 71%. HEENT: On BiPAP machine. Neck: Supple. Chest: Bilateral air entry. Heart: With distant heart sounds. Abdomen: Belly is soft, nontender. PICC line on the right side noted. Extremities: With 1+ pedal edema. Vines was placed. LABORATORY DATA: White cell count 11, hematocrit 36, platelets 189,000. SMA 7: Potassium 3.3, BUN 74 creatinine 1.7. ASSESSMENT AND PLAN: 1. Acute respiratory failure due to persistent infiltrates. 2. Diastolic heart failure along with possible aspiration with a fever, and he is on intravenous Levaquin and intravenous Lasix. 3. Chronic atrial fibrillation, stable. 4. Upper gastrointestinal bleeding. Transfuse 4 units of washed red blood cell. 5. IgA deficiency, stable. 6. Chronic kidney disease. Creatinine stable. 7. Hypokalemia. Replace the potassium. 8. Coumadin toxicity, gastrointestinal bleeding off Coumadin. 9. Gout of the left ankle on colchicine. I had a long discussion with the family members around 1:00 p.m. and gave all this information to the family. At this time his condition is slowly deteriorating if he does not improve. Family is well aware of the situation, and they are well prepared for the worst case. Continue supportive care. I appreciate all the consultants. LEVEL OF DOCUMENTATION: 25 minutes. cc: Seth Hines MD
[2018-05-18] MEDS: DUONEB (A & A) INH SCH (03:40)
[2018-05-18] MEDS: LASIX 200 MG in NS 25 ML IV SCH (05:15)
[2018-05-18 05:19] LABS: BASO# 0.01 X1000 (0.0-0.2); BASO% 0.1 % (0.0-0.8); EOS# 0.05 X1000 (0.0-0.7); EOS% 0.3 % (0.0-10.0); HEMATOCRIT 39.5 % (42.0-52.0); HEMOGLOBIN 11.6 g/dL (14.0-18.0); IMM GRAN# 0.14 X1000 (0.0-0.04); IMM GRAN% 0.8 % (0.0-0.5); LYMPH# 0.89 X1000 (1.2-3.4); LYMPH% 5.3 % (20.5-51.1); MCH 27.4 PG (27-31); MCHC 29.4 g/dL (33-37); MCV 93.2 FL (81-99); MONO# 1.72 X1000 (0.11-0.59); MONO% 10.3 % (1.7-9.3); MPV 10.6 FL (7.4-10.4); NEUT# 13.87 X1000 (1.4-6.5); NEUT% 83.2 % (42.2-75.2); PLT 219 X1000 (130-400); RBC 4.24 XMIL (4.7-6.1); RDW 18.7 % (11.5-14.5); WBC 16.68 X1000 (4.8-10.8)
--- NOTE | 2018-05-18 05:31 | PULMONOLOGY PROGRESS NOTE ---
DATE: 05/17/2018 SUBJECTIVE: The patient has remained on BiPAP all day long. Despite BiPAP, his oxygen saturations are running in the 70s. He is unable to be liberated for even short periods of time. OBJECTIVE: Blood pressure 120/65, heart rate 96, respiratory rate 28, oxygen saturation 91%. HEENT: Pupils are equal and reactive. Oropharynx evaluation is limited with BiPAP in place. Neck: Supple. Chest: Reveals diffuse bilateral crackles. Cardiac: S1, S2. Abdomen: Soft. Extremities: Revealed 2+ peripheral edema. LABORATORIES: Chest x-ray reveals diffuse bilateral infiltrates without improvement. Chemistries: Sodium 149, potassium 3.3, chloride 103, bicarbonate 25, BUN 74, creatinine 1.7. IMPRESSION: A 72-year-old with diastolic heart failure, pulmonary hypertension, pulmonary edema, acute gastrointestinal bleeding, acute hypoxemic respiratory failure, acute hypercapnic respiratory failure. He has had marginal improvement in urine output on high-dosed Lasix. Radiographically, he is worse, and his oxygen requirements have worsened as well. His prognosis is extremely poor, and I doubt that he will survive this hospitalization. RECOMMENDATION: 1. Continue BiPAP. 2. Continue high-dose diuretics. 3. Overall prognosis is poor. End of life discussions have been addressed by Dr. Hines, and he is a do not resuscitate level 1. cc: MD Seth Kenny MD
[2018-05-18 05:52] LABS: CALCIUM 8.6 mg/dL (8.8-10.2); CREATININE 2.4 mg/dL (0.7-1.2)
--- NOTE | 2018-05-18 07:14 | Diag Imaging Result Doc PS360 ---
EXAM: CHEST-PORTABLE 05/18/2018 HISTORY: respiratory failure TECHNIQUE: AP portable at 0539 COMMENT: There are patchy alveolar opacities throughout both lungs nearly obscuring both hemithoraces. This was also the case at the time the previous study 05/17/2018. There may be slight worsening in the apices. IMPRESSION: Minimally worsened pulmonary edema/ARDS. Electronically signed by Reggie Slater 05/18/2018 7:11 AM
[2018-05-18] MEDS: CENTRUM SILVER PO SCH (08:05)
[2018-05-18] MEDS: COLCRYS PO SCH (08:05)
[2018-05-18 08:07] VITALS: BP 120/53
[2018-05-18] MEDS: PROSCAR PO SCH (08:07)
[2018-05-18] MEDS: ZYRTEC PO SCH (08:07)
[2018-05-18] MEDS: VITAMIN B-12 PO SCH (08:07)
[2018-05-18] MEDS: FOLIC ACID PO SCH (08:07)
[2018-05-18] MEDS: ICAR-C PO SCH (08:08)
[2018-05-18] MEDS: COREG PO SCH (08:08)
[2018-05-18] MEDS: ZYLOPRIM PO SCH (08:09)
[2018-05-18] MEDS: PROTONIX IV SCH (08:47)
--- NOTE | 2018-05-18 12:34 | GASTROENTEROLOGY PROGRESS NOTE ---
DATE: 05/18/2018 SUBJECTIVE: Resting in bed. His family present at bedside. The patient is currently on BiPAP. According to the nursing staff, no vomiting blood was noted, and no blood in the stools was noted. He is on comfort care. OBJECTIVE: Vital signs: Temperature 99.3 degrees, pulse rate 110, respiratory rate 31, blood pressure 120/53. General: He is tachypneic. The family is there at bedside. HEENT: Positive BiPAP mask. Neck: Signs of tachypnea. Abdomen: Protuberant, no guarding. Extremities: No cyanosis. Neurological: obtunded. Extremities were not examined. DIAGNOSTIC DATA: Hemoglobin 11.6, hematocrit 39.5, white count of 16.6, platelet count of 219,000. Sodium 140, potassium 4, chloride 102, bicarbonate 32, anion gap 10, BUN of 88, creatinine 2.4, glucose of 130, calcium is 8.6. IMPRESSION AND PLAN: 1. The patient is currently on comfort care. He is hypoxic while on 100% on BIPAP. 2. I offered my assistance to the family. We will available if needed. I have discussed with the patient's nursing staff. We will be available if needed. The above plan was discussed with the patient' s family, and all questions were answered. cc: MD Seth hCa MD MTDD
--- NOTE | 2018-05-18 14:45 | NEPHROLOGY PROGRESS NOTE ---
DATE: 05/18/2018 TIME SEEN: 0800. SUBJECTIVE: Mr. Hall remains on BiPAP. He remains in distress, struggling for air. Head is in the upright position. His family is at the bedside. OBJECTIVE: Vital Signs: Temperature 98.8 degrees, blood pressure 127/56, heart rate 112, respirations are 36. Again, he is on 100% BiPAP. Last recorded saturation is at 100%. Intake and output: He has had 90 in he has had 1050 out. General: This is a 72-year-old elderly male, who is currently struggling for air at this time. He is on 100% BiPAP. Head of the bed is elevated. His family is at his bedside. The patient is a DNR level 1. Skin: Warm and dry. HEENT: Normocephalic, atraumatic. Conjunctivae pale, pink. ROD. Mucous membranes are very dry. Neck: Supple. Unable to determine JVD due to neck strap. Cardiovascular: Regular rate and rhythm. He is tachycardic. Lungs: The patient is tachypneic. Respirations are up to 36. Remains on 100% BiPAP. He does have coarse breath sounds with inspiratory and expiratory wheezes. Abdomen: Large, round, soft, nontender. Positive bowel sounds. Genitourinary: Not inspected. He has had adequate urine out recorded. Extremities: Continues with 2 to 3+ lower extremity edema. Neurological: The patient moans to verbal stimuli. DIAGNOSTIC DATA: Sodium 148, potassium 4, chloride 102, CO2 of 36, BUN 88, creatinine 2.4, glucose 130, anion gap 10, calcium 8.6. White count 16.6, hemoglobin 11.6, hematocrit 39.5, platelet count 219,000. ASSESSMENT AND PLAN: 1. Acute kidney injury overlying chronic kidney disease. The patient has remained at his historical baseline since his hospitalization. No indications for dialysis therapy. 2. Electrolytes and acid-base balance. These have been fairly stable. 3. Anemia. This remains low but stable. 4. Respiratory distress. The patient is a DNR. He remains on 100% BiPAP. He has had adequate urine out. He continues to receive Lasix therapy. I would like to thank you for allowing us to follow with this patient. Dictated by YRN Ojeda for Rafael Baldwin MD cc: YRN Ojeda MD Jagan Reddy, MD
--- NOTE | 2018-05-20 23:38 | DISCHARGE SUMMARY ---
ADMISSION DATE: 05/09/2018 DISCHARGE DATE: 05/18/2018 DATE OF : 05/18/2018 at 10:20 a.m. FINAL DIAGNOSIS: Acute cardiopulmonary arrest due to acute respiratory failure due to diastolic congestive heart failure with chronic atrial fibrillation associated with upper gastrointestinal bleeding and multiorgan failure with acute kidney injury. OTHER DIAGNOSES: 1. Chronic atrial fibrillation. 2. Diastolic heart failure. 3. 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 4. Upper gastrointestinal bleeding. 5. Acute kidney injury. 6. 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 7. Basal cell carcinoma in the right evangelical area. 8. Benign prostatic hypertrophy. 9. Type 2 diabetes diet controlled. 10. Hyperlipidemia. 11. Testicular hydrocele. CONSULTATIONS: 1. Dr. Meza. 2. Dr. Yañez. 3. Dr. Baldwin. 4. Dr. Valdes. PROCEDURES: 1. Noninvasive ventilator support with BiPAP machine. 2. PICC line on the right side. 3. Multiple blood transfusions with washed red blood cells. BRIEF HISTORY: Please see the H and P that was done on 05/09/2018. In brief, he is a 72-year-old white gentleman admitted to the hospital from my office with shortness of breath , swelling of feet with blisters coming from the legs. He was hypoxic. Chest x-ray showed diastolic heart failure with increased pulmonary vasculature. He also had chronic kidney disease with creatinine 1.5 with right nephrectomy. He also had flank kidney on the right side. Initially was admitted on the floor and IV Lasix was given fails to diuresis. Patient became more confused due to hypoxemia, hypercarbia requiring BiPAP machine. He was very agitated, combative in the floor. Subsequently transferred to the ICU for better nursing care. In the ICU the clinical course as follows. 1. He was given sedation as needed. 2. The patient was placed on BiPAP with FiO2 more than 50% to keep the saturation above 90%. 3. He was in atrial fibrillation. INR was around 7 and Coumadin was stopped. 4. Dr. Baldwin was started off Lasix 200 mg q.12. He started diuresing slowly and coming off the ventilators noninvasive ventilator support. Still requiring high FiO2. 5. Poor IV access requiring PICC line on the right side of the arm. 6. Patient remained continues to have infiltrates bilaterally. Echocardiography showed normal LV systolic function. 7. Creatinine was pretty much stable around 2. Hospital course was complicated with the following problems. 1. Passing black melenic stool maroon and declining hematocrit to 23. Since he has IgA deficiency we have the order washed red blood cells from [place] and he was given slowly transfusion to maintain hematocrit around 30. In the meantime Coumadin was stopped, INR was 7 for which vitamin K was given. Followup INR came back normal. He started having fever and started on IV Levaquin. 2. Vines was placed. He started diuresing despite. He continues to have infiltrates and requiring high FiO2. Family decided he has a living will DNR but he can want to go for dialysis if needed. We were not able to do EGD because of his hypoxemia was not improving. He remained on BiPAP with FiO2 of 100%. He also complaining of left ankle pain due to gout, uric acid 8.9. He was given colchicine. Despite aggressive support he continues to have bilateral infiltrates presumed to be some aspiration pneumonia along with CHF and I had a long discussion with the family members. His condition is deemed to be terminal even with BiPAP, high FiO2, aggressive bronchial toilet, antibiotics on FiO2 100%, saturations remain below 70%. Family was aware of his dire situation and patient peacefully on 05/18/2018 at 10:10 a.m. Family was at bedside. The cause of the was due to cardiopulmonary arrest due to diastolic heart failure with superimposed pneumonia with multiorgan failure with comorbid conditions as above. cc: MD Kulwinder Borges MD [facility]
== END 2018-05-18 10:20 | disposition expired | DRG 291 ==
LOC: DIRADM 12:04 → 3N 12:42 → ICU 05-10 11:15 → 3S 05-15 14:36
PROVIDERS: ADMIT Internal Medicine; ATTEND Internal Medicine
CPT/HCPCS: 36430; 36569; 71010; 71020; 71045; 71046; 76700; 80048; 80053; 82270; 82607; 82805; 82948; 83036; 83735; 83880; 84100; 84484; 84550; 85014; 85018; 85025; 85610; 86850; 86900; 86901; 86920; 93005; 93010; 93306; 94640; 94660; 94761; 94762; A9270; C9113; J1200; J1439; J1940; J1956; J2060; J3430; J3480; J7040; J7050; P9016; P9022; S0138; S0164; XXXXX